=== PATIENT | male | born 1990 | race Caucasian/White ===

== ENCOUNTER 2017-02-22 13:09 | Emergency (ER) | payer SELFPAY ==
[2017-02-22 13:35] VITALS: BP 131/66
[2017-02-22] MEDS ORDERED: Sodium Chloride 0.9% 10 ML Syringe FLUSH PRN (14:05)
[2017-02-22] MEDS ORDERED: Sodium Chloride 0.9% 1,000 ML IV ONE ×2 (14:06→15:40)
[2017-02-22] MEDS ORDERED: Ondansetron 4 MG/2 ML SDV IV ONE ×2 (14:06→16:13)
[2017-02-22] MEDS ORDERED: HYDROmorphone 1 MG/ML Syringe IVPUSH ONE ×2 (14:06→16:13)
[2017-02-22 14:24] LABS: CHLORIDE,CL 104 mmol/L (101-111); SODIUM,NA 140 mmol/L (135-145)
[2017-02-22] MEDS ORDERED: Iopamidol 612 MG/ML 100 ML Bottle IVPUSH ONE (14:38)
[2017-02-22] MEDS ORDERED: methylPREDNISolone Sodium Succinate 125 MG/2 ML SDV IVPUSH ONE (15:51)
--- NOTE | 2017-02-22 16:52 | EDM.PDOC ---
Scribed by Sunitha Baer 02/22/17 [id number] for Eugenio Steward MD ED HPI GENERAL MEDICAL PROBLEM - General Chief Complaint: Abdominal Pain Stated Complaint: FLU [id number] Time Seen by Provider: 02/22/17 13:50 Source of Information: Reports: Patient, RN, RN Notes Reviewed History Limitations: Reports: No Limitations - History of Present Illness INITIAL COMMENTS - FREE TEXT/NARRATIVE: Complaint of onset of chills and upper-mid abdominal pain with nausea and vomiting 3 or 4 days ago. Denies fever, diarrhea or constipation. No known sick contacts. Denies urinary symptoms. Location: Reports: Abdomen Quality: Reports: Ache Severity: Severe Improves with: Reports: None Worsens with: Reports: None Associated Symptoms: Reports: No Other Symptoms Middle Abdominal Pain Score (Numeric/FACES): 9 - Related Data Allergies Allergy/AdvReac Type Severity Reaction Status Date / Time No Known Allergies Allergy Verified 12/10/14 21:11 Home Meds: Home Meds Omeprazole Magnesium [Prilosec Otc] 1 tab PO DAILY 02/22/17 [History] Social & Family History - Family History Family Medical History: Noncontributory - Tobacco Use Smoking Status *Q: Never Smoker - Recreational Drug Use Recreational Drug Use: No ED ROS GENERAL - Review of Systems Review Of Systems: ROS reveals no pertinent complaints other than HPI. ED EXAM, GENERAL - Physical Exam Exam: See Below Exam Limited By: No Limitations General Appearance: Other (pale and uncomfortable appearing.) Eye Exam: Bilateral Eye: Normal Inspection Ears: Normal External Exam, Normal Canal, Hearing Grossly Normal, Normal TMs Nose: Other (dry oral membranes) Throat/Mouth: Normal Inspection, Normal Lips, Normal Teeth, Normal Gums, Normal Oropharynx, Normal Voice, No Airway Compromise Head: Atraumatic, Normocephalic Neck: Normal Inspection, Supple, Non-Tender, Full Range of Motion Respiratory/Chest: No Respiratory Distress, Lungs Clear, Normal Breath Sounds, No Accessory Muscle Use, Chest Non-Tender Cardiovascular: Regular Rate, Rhythm, Tachycardia GI/Abdominal: Other (mild epigastric and periumbilical tenderness. ) (Male) Exam: Deferred Rectal (Males) Exam: Deferred Back Exam: Normal Inspection, Full Range of Motion, NT Extremities: Normal Inspection, Normal Range of Motion, Non-Tender, Normal Capillary Refill, No Pedal Edema Neurological: Alert, Oriented, CN II-XII Intact, Normal Cognition, Normal Gait, Normal Reflexes, No Motor/Sensory Deficits Psychiatric: Normal Affect, Normal Mood Skin Exam: Warm, Dry, Intact, Normal Color, No Rash Lymphatic: No Adenopathy Course - Vital Signs Last Recorded V/S: Last Vital Signs Temp 36.8 C 02/22/17 13:24 Pulse 52 L 02/22/17 13:24 Resp 18 02/22/17 13:24 BP 131/66 02/22/17 13:24 Pulse Ox 99 02/22/17 13:24 - Orders/Labs/Meds Orders: Active Orders 24 hr Category Date Time Status Peripheral IV Care [RC] . DIRECTED Care 02/22/17 14:06 Active Abdomen Pelvis w Cont [CT] Stat Exams 02/22/17 14:38 Taken C PEPTIDE [REF] Stat Lab 02/22/17 13:53 Received GLYCOSYLATED HEMOGLOBIN (HA1C) [REF] Stat Lab 02/22/17 13:53 Received Sodium Chloride 0.9% [Saline Flush] Med 02/22/17 14:05 Active 10 ml FLUSH ASDIRECTED PRN Peripheral IV Insertion Adult [OM.PC] Stat Oth 02/22/17 14:05 Ordered Medication Orders Sodium Chloride (Saline Flush) 10 ml FLUSH ASDIRECTED PRN PRN Reason: Keep Vein Open Last Admin: 02/22/17 14:00 Dose: 10 ml Labs: Laboratory Tests 02/22/17 02/22/17 02/22/17 Range/Units 13:53 13:53 13:53 WBC 18.8 H (5.0-10.0) 10^3/uL RBC 5.73 (4.6-6.2) 10^6/uL Hgb 16.4 (14.0-18.0) g/dL Hct 46.6 (40.0-54.0) % MCV 81.3 (80-100) fL MCH 28.6 (27.0-34.0) pg MCHC 35.2 H (33.0-35.0) g/dL Plt Count 210 (150-450) 10^3/uL Neut % (Auto) 91.7 H (42.2-75.2) % Lymph % (Auto) 4.4 L (20.5-50.1) % Terry % (Auto) 3.7 (2-8) % Eos % (Auto) 0.1 L (1.0-3.0) % Baso % (Auto) 0.1 (0.0-1.0) % Sodium 140 (135-145) mmol/L Potassium 4.0 (3.6-5.0) mmol/L Chloride 104 (101-111) mmol/L Carbon Dioxide 23.0 (21.0-31.0) mmol/L Anion Gap 17.0 BUN 15 (7-18) mg/dL Creatinine 1.2 (0.6-1.3) mg/dL Est Cr Clr Drug Dosing 94.63 mL/min Estimated GFR (MDRD) > 60 BUN/Creatinine Ratio 12.50 Glucose 157 H (74-105) mg/dL Calcium 9.9 (8.4-10.2) mg/dl Total Bilirubin 0.9 (0.2-1.0) mg/dL AST 26 (10-42) IU/L ALT 27 (10-60) IU/L Alkaline Phosphatase 72 (42-121) IU/L C-Reactive Protein < 0.5 (0.0-1.3) mg/dL Total Protein 7.9 (6.7-8.2) g/dl Albumin 4.9 (3.2-5.5) g/dl Globulin 3.0 Albumin/Globulin Ratio 1.63 Amylase 45 (28-100) U/L Lipase 15 L (22-51) U/L Urine Color (YELLOW) Urine Appearance (CLEAR) Urine pH (5.0-9.0) Ur Specific [place] (1.005-1.030) Urine Protein (NEGATIVE) Urine Glucose (UA) (NEGATIVE) Urine Ketones (NEGATIVE) Urine Occult Blood (NEGATIVE) Urine Nitrite (NEGATIVE) Urine Bilirubin (NEGATIVE) Urine Urobilinogen (0.2-1.0) mg/dL Ur Leukocyte Esterase (NEGATIVE) Urine RBC /HPF Urine WBC (0-5/HPF) /HPF Ur Epithelial Cells /HPF Urine Bacteria (0-FEW/HPF) /HPF Urine Mucus /LPF Urine Opiates Screen (NEGATIVE) Ur Oxycodone Screen (NEGATIVE) Urine Methadone Screen (NEGATIVE) Ur Barbiturates Screen (NEGATIVE) U Tricyclic Antidepress (NEGATIVE) Ur Phencyclidine Scrn (NEGATIVE) Ur Amphetamine Screen (NEGATIVE) U Methamphetamines Scrn (NEGATIVE) Urine MDMA Screen (NEGATIVE) U Benzodiazepines Scrn (NEGATIVE) Urine Cocaine Screen (NEGATIVE) U Marijuana (THC) Screen (NEGATIVE) 02/22/17 02/22/17 Range/Units 16:02 16:02 WBC (5.0-10.0) 10^3/uL RBC (4.6-6.2) 10^6/uL Hgb (14.0-18.0) g/dL Hct (40.0-54.0) % MCV (80-100) fL MCH (27.0-34.0) pg MCHC (33.0-35.0) g/dL Plt Count (150-450) 10^3/uL Neut % (Auto) (42.2-75.2) % Lymph % (Auto) (20.5-50.1) % Terry % (Auto) (2-8) % Eos % (Auto) (1.0-3.0) % Baso % (Auto) (0.0-1.0) % Sodium (135-145) mmol/L Potassium (3.6-5.0) mmol/L Chloride (101-111) mmol/L Carbon Dioxide (21.0-31.0) mmol/L Anion Gap BUN (7-18) mg/dL Creatinine (0.6-1.3) mg/dL Est Cr Clr Drug Dosing mL/min Estimated GFR (MDRD) BUN/Creatinine Ratio Glucose (74-105) mg/dL Calcium (8.4-10.2) mg/dl Total Bilirubin (0.2-1.0) mg/dL AST (10-42) IU/L ALT (10-60) IU/L Alkaline Phosphatase (42-121) IU/L C-Reactive Protein (0.0-1.3) mg/dL Total Protein (6.7-8.2) g/dl Albumin (3.2-5.5) g/dl Globulin Albumin/Globulin Ratio Amylase (28-100) U/L Lipase (22-51) U/L Urine Color Yellow (YELLOW) Urine Appearance Clear (CLEAR) Urine pH >= 9.0 (5.0-9.0) Ur Specific [place] 1.015 (1.005-1.030) Urine Protein Negative (NEGATIVE) Urine Glucose (UA) Negative (NEGATIVE) Urine Ketones Negative (NEGATIVE) Urine Occult Blood Negative (NEGATIVE) Urine Nitrite Negative (NEGATIVE) Urine Bilirubin Negative (NEGATIVE) Urine Urobilinogen 0.2 (0.2-1.0) mg/dL Ur Leukocyte Esterase Negative (NEGATIVE) Urine RBC 0-5 /HPF Urine WBC 0-5 (0-5/HPF) /HPF Ur Epithelial Cells Not seen /HPF Urine Bacteria Not seen (0-FEW/HPF) /HPF Urine Mucus Rare /LPF Urine Opiates Screen Positive H (NEGATIVE) Ur Oxycodone Screen Negative (NEGATIVE) Urine Methadone Screen Negative (NEGATIVE) Ur Barbiturates Screen Negative (NEGATIVE) U Tricyclic Antidepress Negative (NEGATIVE) Ur Phencyclidine Scrn Negative (NEGATIVE) Ur Amphetamine Screen Negative (NEGATIVE) U Methamphetamines Scrn Negative (NEGATIVE) Urine MDMA Screen Negative (NEGATIVE) U Benzodiazepines Scrn Negative (NEGATIVE) Urine Cocaine Screen Negative (NEGATIVE) U Marijuana (THC) Screen Positive H (NEGATIVE) Meds: Medications Generic Name Dose Route Start Last Admin Trade Name Freq PRN Reason Stop Dose Admin Sodium Chloride 10 ml 02/22/17 14:05 02/22/17 14:00 Saline Flush FLUSH 10 ml ASDIRECTED PRN Administration Keep Vein Open Discontinued Medications Generic Name Dose Route Start Last Admin Trade Name Freq PRN Reason Stop Dose Admin Hydromorphone HCl 0.5 mg 02/22/17 14:06 02/22/17 14:17 Dilaudid IVPUSH 02/22/17 14:07 0.5 mg ONETIME ONE Administration Hydromorphone HCl 1 mg 02/22/17 16:13 02/22/17 16:20 Dilaudid IVPUSH 02/22/17 16:14 1 mg ONETIME ONE Administration Sodium Chloride 1,000 mls @ 999 mls/hr 02/22/17 14:06 02/22/17 14:12 Normal Saline IV 02/22/17 15:06 999 mls/hr .BOLUS ONE Administration Sodium Chloride 1,000 mls @ 999 mls/hr 02/22/17 15:40 02/22/17 16:04 Normal Saline IV 02/22/17 16:40 999 mls/hr .BOLUS ONE Administration Iopamidol 100 ml 02/22/17 14:38 02/22/17 15:08 Isovue-300 (61%) IVPUSH 02/22/17 14:39 100 ml ONETIME ONE Administration Methylprednisolone Sodium Succinate 125 mg 02/22/17 15:51 02/22/17 16:04 Solu-Medrol IVPUSH 02/22/17 15:52 125 mg ONETIME ONE Administration Ondansetron HCl 4 mg 02/22/17 14:06 02/22/17 14:13 Zofran IV 02/22/17 14:07 4 mg ONETIME ONE Administration Ondansetron HCl 4 mg 02/22/17 16:13 02/22/17 16:18 Zofran IV 02/22/17 16:14 4 mg ONETIME ONE Administration - Radiology Interpretation Free Text/Narrative:: CT abdomen/pelvis: Features suggestive of acute colitis. There is abnormal hypodense mucosal thickening present in the ascending, transverse, descending and proximal sigmoid colonic segments of large bowel, suggestive of acute colitis. No evidence of megacolon or colonic perforation. No evidence of significant ileus or bowel obstruction. Appendix appaers normal. A tiny periumbilical midline ventral hernia is present. See rad report. Departure - Departure Time of Disposition: 16:16 Disposition: Home, Self-Care 01 Condition: Fair Clinical Impression: Colitis, Hyperglycemia Abdominal pain Qualifiers: Abdominal location: generalized Qualified Code(s): R10.84 - Generalized abdominal pain - Discharge Information Instructions: Hyperglycemia, [id number], Colitis Forms: ED Department Discharge Additional Instructions: RX: Bentyl 20mg. *Do not drive while under the influence of this medication. RX: Zofran 4mg. Clear liquid diet until vomiting and abdominal pain resolve. Follow up in clinic February 24, for recheck of colitis and blood sugar. Return to the emergency department if you develop fever, bloody diarrhea, or uncontrolled abdominal pain. - My Orders Last 24 Hours: My Active Orders 02/22/17 13:53 C PEPTIDE [REF] Stat GLYCOSYLATED HEMOGLOBIN (HA1C) [REF] Stat 02/22/17 14:05 Sodium Chloride 0.9% [Saline Flush] 10 ml FLUSH ASDIRECTED PRN Peripheral IV Insertion Adult [OM.PC] Stat 02/22/17 14:06 Peripheral IV Care [RC] . DIRECTED 02/22/17 14:38 Abdomen Pelvis w Cont [CT] Stat - Assessment/Plan Last 24 Hours: My Active Orders 02/22/17 13:53 C PEPTIDE [REF] Stat GLYCOSYLATED HEMOGLOBIN (HA1C) [REF] Stat 02/22/17 14:05 Sodium Chloride 0.9% [Saline Flush] 10 ml FLUSH ASDIRECTED PRN Peripheral IV Insertion Adult [OM.PC] Stat 02/22/17 14:06 Peripheral IV Care [RC] . DIRECTED 02/22/17 14:38 Abdomen Pelvis w Cont [CT] Stat I have read and agree with the documentation that has been completed regarding this visit. By signing this record, I attest that the documentation was completed in my physical presence and is an accurate record of the encounter.
== END 2017-02-22 17:05 | disposition home or self-care (01) ==
LOC: DL.ED 13:09
DX: K52.9 Noninfective gastroenteritis and colitis, unspecified (principal); R73.9 Hyperglycemia, unspecified; Z79.899 Other long term (current) drug therapy
CPT/HCPCS: 36415; 74177; 80053; 80305; 81001; 82150; 83036; 83690; 84681; 85025; 86140; 96365; 96366; 96375; 96376; 99284; J1170; J2405; J2930; J7030; J7050; Q9967

== ENCOUNTER 2017-02-23 10:15 | Emergency (ER) | payer SELFPAY ==
[2017-02-23] MEDS ORDERED: Sodium Chloride 0.9% 10 ML Syringe FLUSH PRN (10:19)
[2017-02-23] MEDS ORDERED: Ondansetron 4 MG/2 ML SDV IV ONE ×2 (10:22→11:35)
[2017-02-23] MEDS ORDERED: Sodium Chloride 0.9% 1,000 ML IV ONE (10:22)
[2017-02-23] MEDS ORDERED: HYDROmorphone 1 MG/ML Syringe IVPUSH ONE ×2 (10:22→11:35)
[2017-02-23 10:28] VITALS: BP 143/70
[2017-02-23 10:59] LABS: CHLORIDE,CL 106 mmol/L (101-111); SODIUM,NA 139 mmol/L (135-145)
--- NOTE | 2017-02-23 11:35 | EDM.PDOC ---
Scribed by Sunitha Baer 02/23/17 1116 for Eugenio Steward MD ED HPI GENERAL MEDICAL PROBLEM - General Chief Complaint: Abdominal Pain Stated Complaint: SICK Time Seen by Provider: 02/23/17 10:19 Source of Information: Reports: Patient, RN, RN Notes Reviewed History Limitations: Reports: No Limitations - History of Present Illness INITIAL COMMENTS - FREE TEXT/NARRATIVE: Arrives from home by POV with complaint of increased abdominal pain with continued nausea, vomiting, chills and now has developed watery diarrhea. Patient seen here yesterday and found to have colitis by CT scan with WBC [id number] and nonelevated CRP. Denies blood in emesis or stool. Location: Reports: Abdomen Quality: Reports: Ache Severity: Severe Improves with: Reports: None Worsens with: Reports: None Associated Symptoms: Reports: No Other Symptoms Middle Abdominal Pain Score (Numeric/FACES): 9 - Related Data Allergies Allergy/AdvReac Type Severity Reaction Status Date / Time No Known Allergies Allergy Verified 12/10/14 21:11 Home Meds: Home Meds Omeprazole Magnesium [Prilosec Otc] 1 tab PO DAILY 02/22/17 [History] Dicyclomine [Bentyl] 1 tab PO ASDIRECTED PRN 02/23/17 [History] Ondansetron [Zofran ODT] 1 tab PO ASDIRECTED PRN 02/23/17 [History] Past Medical History Gastrointestinal History: Reports: GERD - Past Surgical History GI Surgical History: Reports: EGD Social & Family History - Family History Family Medical History: Noncontributory - Tobacco Use Smoking Status *Q: Never Smoker Used Tobacco, but Quit: Yes Month Tobacco Last Used: 6 - Caffeine Use Caffeine Use: Reports: Soda - Recreational Drug Use Recreational Drug Use: No ED ROS GENERAL - Review of Systems Review Of Systems: ROS reveals no pertinent complaints other than HPI. ED EXAM, GI/ABD - Physical Exam Exam: See Below Exam Limited By: No Limitations General Appearance: Other (acutely ill, but nontoxic appearing. ) Eyes: Bilateral: Normal Appearance Ears: Normal External Exam, Normal Canal, Hearing Grossly Normal, Normal TMs Nose: Normal Inspection, Normal Mucosa, No Blood Throat/Mouth: Other (dry oral membranes) Head: Atraumatic, Normocephalic Neck: Normal Inspection, Supple, Non-Tender, Full Range of Motion Respiratory/Chest: No Respiratory Distress, Lungs Clear, Normal Breath Sounds, No Accessory Muscle Use, Chest Non-Tender Cardiovascular: Regular Rate, Rhythm, Tachycardia GI/Abdominal Exam: Normal Bowel Sounds, Other (nondistended abdomen with generalized tenderness, no rebound tenderness, guarding, or rigidity. No peritoneal signs. ) (Male) Exam: Deferred Rectal (Males) Exam: Deferred Back Exam: Normal Inspection, Full Range of Motion, NT Extremities: Normal Inspection, Normal Range of Motion, Non-Tender, Normal Capillary Refill, No Pedal Edema Neurological: Alert, Oriented, CN II-XII Intact, Normal Cognition, Normal Gait, Normal Reflexes, No Motor/Sensory Deficits Skin Exam: Warm, Dry, Intact, Normal Color, No Rash Lymphatic: No Adenopathy Course - Vital Signs Last Recorded V/S: Last Vital Signs Temp 36.7 C 02/23/17 10:46 Pulse 54 L 02/23/17 10:27 Resp 20 02/23/17 10:27 BP 143/70 H 02/23/17 10:27 Pulse Ox 99 02/23/17 10:27 - Orders/Labs/Meds Orders: Active Orders 24 hr Category Date Time Status Peripheral IV Care [RC] . DIRECTED Care 02/23/17 10:20 Active CULTURE BLOOD [BC] Stat Lab 02/23/17 10:28 Received CULTURE BLOOD [BC] Stat Lab 02/23/17 10:31 Received ESR [SEDIMENTATION RATE MANUAL] [HEME] Stat Lab 02/23/17 10:31 Received Sodium Chloride 0.9% [Normal Saline] 1,000 ml Med 02/23/17 11:45 Ordered IV ASDIRECTED Sodium Chloride 0.9% [Saline Flush] Med 02/23/17 10:19 Active 10 ml FLUSH ASDIRECTED PRN Blood Culture x2 Reflex Set [OM.PC] Stat Oth 02/23/17 10:21 Ordered Peripheral IV Insertion Adult [OM.PC] Stat Oth 02/23/17 10:19 Ordered Medication Orders Sodium Chloride (Normal Saline) 1,000 mls @ 200 mls/hr IV ASDIRECTED SONIA Sodium Chloride (Saline Flush) 10 ml FLUSH ASDIRECTED PRN PRN Reason: Keep Vein Open Last Admin: 02/23/17 10:30 Dose: 10 ml Labs: Laboratory Tests 0902/23/17 02/23/17 Range/Units 10:31 10:31 10:31 WBC 37.4 H* (5.0-10.0) 10^3/uL RBC 5.28 (4.6-6.2) 10^6/uL Hgb 15.1 (14.0-18.0) g/dL Hct 43.6 (40.0-54.0) % MCV 82.6 (80-100) fL MCH 28.6 (27.0-34.0) pg MCHC 34.6 (33.0-35.0) g/dL Plt Count 201 (150-450) 10^3/uL Neut % (Auto) 87.2 H (42.2-75.2) % Lymph % (Auto) 5.5 L (20.5-50.1) % [place] % (Auto) 7.2 (2-8) % Eos % (Auto) 0.0 L (1.0-3.0) % Baso % (Auto) 0.1 (0.0-1.0) % Sodium 139 (135-145) mmol/L Potassium 3.5 L (3.6-5.0) mmol/L Chloride 106 (101-111) mmol/L Carbon Dioxide 20.0 L (21.0-31.0) mmol/L Anion Gap 16.5 BUN 14 (7-18) mg/dL Creatinine 1.2 (0.6-1.3) mg/dL Est Cr Clr Drug Dosing TNP Estimated GFR (MDRD) > 60 BUN/Creatinine Ratio 11.66 Glucose 129 H (74-105) mg/dL Lactic Acid 1.7 (0.5-2.2) mmol/L Calcium 9.2 (8.4-10.2) mg/dl Total Bilirubin 1.0 (0.2-1.0) mg/dL AST 23 (10-42) IU/L ALT 22 (10-60) IU/L Alkaline Phosphatase 61 (42-121) IU/L C-Reactive Protein (0.0-1.3) mg/dL Total Protein 6.9 (6.7-8.2) g/dl Albumin 4.4 (3.2-5.5) g/dl Globulin 2.5 Albumin/Globulin Ratio 1.76 Amylase 109 H (28-100) U/L Lipase 82 H (22-51) U/L Urine Color (YELLOW) Urine Appearance (CLEAR) Urine pH (5.0-9.0) Ur Specific [place] (1.005-1.030) Urine Protein (NEGATIVE) Urine Glucose (UA) (NEGATIVE) Urine Ketones (NEGATIVE) Urine Occult Blood (NEGATIVE) Urine Nitrite (NEGATIVE) Urine Bilirubin (NEGATIVE) Urine Urobilinogen (0.2-1.0) mg/dL Ur Leukocyte Esterase (NEGATIVE) Urine RBC /HPF Urine WBC (0-5/HPF) /HPF Ur Epithelial Cells /HPF Amorphous Sediment (0/HPF) /HPF Urine Bacteria (0-FEW/HPF) /HPF Urine Mucus /LPF Urine Opiates Screen (NEGATIVE) Ur Oxycodone Screen (NEGATIVE) Urine Methadone Screen (NEGATIVE) Ur Barbiturates Screen (NEGATIVE) U Tricyclic Antidepress (NEGATIVE) Ur Phencyclidine Scrn (NEGATIVE) Ur Amphetamine Screen (NEGATIVE) U Methamphetamines Scrn (NEGATIVE) Urine MDMA Screen (NEGATIVE) U Benzodiazepines Scrn (NEGATIVE) Urine Cocaine Screen (NEGATIVE) U Marijuana (THC) Screen (NEGATIVE) 02/23/17 02/23/17 02/23/17 Range/Units 10:31 10:39 10:39 WBC (5.0-10.0) 10^3/uL RBC (4.6-6.2) 10^6/uL Hgb (14.0-18.0) g/dL Hct (40.0-54.0) % MCV (80-100) fL MCH (27.0-34.0) pg MCHC (33.0-35.0) g/dL Plt Count (150-450) 10^3/uL Neut % (Auto) (42.2-75.2) % Lymph % (Auto) (20.5-50.1) % [place] % (Auto) (2-8) % Eos % (Auto) (1.0-3.0) % Baso % (Auto) (0.0-1.0) % Sodium (135-145) mmol/L Potassium (3.6-5.0) mmol/L Chloride (101-111) mmol/L Carbon Dioxide (21.0-31.0) mmol/L Anion Gap BUN (7-18) mg/dL Creatinine (0.6-1.3) mg/dL Est Cr Clr Drug Dosing Estimated GFR (MDRD) BUN/Creatinine Ratio Glucose (74-105) mg/dL Lactic Acid (0.5-2.2) mmol/L Calcium (8.4-10.2) mg/dl Total Bilirubin (0.2-1.0) mg/dL AST (10-42) IU/L ALT (10-60) IU/L Alkaline Phosphatase (42-121) IU/L C-Reactive Protein < 0.5 (0.0-1.3) mg/dL Total Protein (6.7-8.2) g/dl Albumin (3.2-5.5) g/dl Globulin Albumin/Globulin Ratio Amylase (28-100) U/L Lipase (22-51) U/L Urine Color Yellow (YELLOW) Urine Appearance Slightly cloudy (CLEAR) Urine pH 6.0 (5.0-9.0) Ur Specific [place] >= 1.030 (1.005-1.030) Urine Protein 30 H (NEGATIVE) Urine Glucose (UA) Negative (NEGATIVE) Urine Ketones Negative (NEGATIVE) Urine Occult Blood Negative (NEGATIVE) Urine Nitrite Negative (NEGATIVE) Urine Bilirubin Negative (NEGATIVE) Urine Urobilinogen 0.2 (0.2-1.0) mg/dL Ur Leukocyte Esterase Negative (NEGATIVE) Urine RBC 0-5 /HPF Urine WBC 0-5 (0-5/HPF) /HPF Ur Epithelial Cells Rare /HPF Amorphous Sediment Rare (0/HPF) /HPF Urine Bacteria Occasional (0-FEW/HPF) /HPF Urine Mucus Many H /LPF Urine Opiates Screen Positive H (NEGATIVE) Ur Oxycodone Screen Negative (NEGATIVE) Urine Methadone Screen Negative (NEGATIVE) Ur Barbiturates Screen Negative (NEGATIVE) U Tricyclic Antidepress Negative (NEGATIVE) Ur Phencyclidine Scrn Negative (NEGATIVE) Ur Amphetamine Screen Negative (NEGATIVE) U Methamphetamines Scrn Negative (NEGATIVE) Urine MDMA Screen Negative (NEGATIVE) U Benzodiazepines Scrn Negative (NEGATIVE) Urine Cocaine Screen Negative (NEGATIVE) U Marijuana (THC) Screen Positive H (NEGATIVE) Meds: Medications Generic Name Dose Route Start Last Admin Trade Name Freq PRN Reason Stop Dose Admin Sodium Chloride 1,000 mls @ 200 mls/hr 02/23/17 11:45 Normal Saline IV ASDIRECTED SONIA Sodium Chloride 10 ml 02/23/17 10:19 02/23/17 10:30 Saline Flush FLUSH 10 ml ASDIRECTED PRN Administration Keep Vein Open Discontinued Medications Generic Name Dose Route Start Last Admin Trade Name Lucaq PRN Reason Stop Dose Admin Hydromorphone HCl 1 mg 02/23/17 10:22 02/23/17 10:40 Dilaudid IVPUSH 02/23/17 10:23 1 mg ONETIME ONE Administration Sodium Chloride 1,000 mls @ 999 mls/hr 02/23/17 10:22 02/23/17 10:38 Normal Saline IV 02/23/17 11:22 999 mls/hr .BOLUS ONE Administration Ondansetron HCl 4 mg 02/23/17 10:22 02/23/17 10:39 Zofran IV 02/23/17 10:23 4 mg ONETIME ONE Administration - Radiology Interpretation Free Text/Narrative:: Reviewed CT abdomen/pelvis from 02/22/17. Departure - Departure Time of Disposition: 11:15 Disposition: DC/Tfer to Acute Hospital 02 Condition: Serious Clinical Impression: Colitis, Abdominal pain - Discharge Information Forms: ED Department Discharge, Interfacility Transfer EMTALA - My Orders Last 24 Hours: My Active Orders 02/23/17 10:19 Sodium Chloride 0.9% [Saline Flush] 10 ml FLUSH ASDIRECTED PRN Peripheral IV Insertion Adult [OM.PC] Stat 02/23/17 10:20 Peripheral IV Care [RC] . DIRECTED 02/23/17 10:21 Blood Culture x2 Reflex Set [OM.PC] Stat 02/23/17 10:28 CULTURE BLOOD [BC] Stat 02/23/17 10:31 CULTURE BLOOD [BC] Stat ESR [SEDIMENTATION RATE MANUAL] [HEME] Stat 02/23/17 11:45 Sodium Chloride 0.9% [Normal Saline] 1,000 ml IV ASDIRECTED - Assessment/Plan Last 24 Hours: My Active Orders 02/23/17 10:19 Sodium Chloride 0.9% [Saline Flush] 10 ml FLUSH ASDIRECTED PRN Peripheral IV Insertion Adult [OM.PC] Stat 02/23/17 10:20 Peripheral IV Care [RC] . DIRECTED 02/23/17 10:21 Blood Culture x2 Reflex Set [OM.PC] Stat 02/23/17 10:28 CULTURE BLOOD [BC] Stat 02/23/17 10:31 CULTURE BLOOD [BC] Stat ESR [SEDIMENTATION RATE MANUAL] [HEME] Stat 02/23/17 11:45 Sodium Chloride 0.9% [Normal Saline] 1,000 ml IV ASDIRECTED I have read and agree with the documentation that has been completed regarding this visit. By signing this record, I attest that the documentation was completed in my physical presence and is an accurate record of the encounter.
[2017-02-23] MEDS ORDERED: Sodium Chloride 0.9% 1,000 ML IV SCH (11:45)
== END 2017-02-23 12:12 ==
LOC: DL.ED 10:15
DX: K52.9 Noninfective gastroenteritis and colitis, unspecified (principal); K21.9 Gastro-esophageal reflux disease without esophagitis; Z87.891 Personal history of nicotine dependence; Z79.899 Other long term (current) drug therapy
CPT/HCPCS: 36415; 80053; 80305; 81001; 82150; 83605; 83690; 85025; 85651; 86140; 87040; 96361; 96374; 96375; 96376; 99285; J1170; J2405; J7030; J7050; 87077; 87186; 99284

== ENCOUNTER 2017-05-30 09:48 | Emergency (ER) | payer SELFPAY ==
[2017-05-30] MEDS ORDERED: Sodium Chloride 0.9% 10 ML Syringe FLUSH PRN (10:07)
[2017-05-30] MEDS ORDERED: Sodium Chloride 0.9% 1,000 ML IV ONE ×2 (10:08→11:18)
[2017-05-30] MEDS ORDERED: Ondansetron 4 MG/2 ML SDV IV ONE ×2 (10:08→10:51)
--- NOTE | 2017-05-30 10:19 | EDM.PDOC ---
ED HPI GENERAL MEDICAL PROBLEM - General Chief Complaint: Gastrointestinal Problem Stated Complaint: VOMITING [id number] Time Seen by Provider: 05/30/17 10:09 Source of Information: Reports: Patient, RN, RN Notes Reviewed History Limitations: Reports: No Limitations - History of Present Illness INITIAL COMMENTS - FREE TEXT/NARRATIVE: Pt presents to the ER with c/o N/V for 1 week. He states he was seen in the clinic on Thursday or Thursday and was prescribed Protonix and Effexor. He states he has been nauseated all week and began vomiting again today. He states he has vomited bile emesis 3-4 times today. He states he has not been able to eat much and tried to eat a banana today. He states the abdominal pain has progressed through the week. Onset: Gradual Onset Date: 05/23/17 Duration: Getting Worse Location: Reports: Abdomen Severity: Moderate Improves with: Reports: None Worsens with: Reports: None Abdominal Pain Score (Numeric/FACES): 8 - Related Data Allergies Allergy/AdvReac Type Severity Reaction Status Date / Time No Known Allergies Allergy Verified 05/30/17 09:59 Home Meds: Home Meds Pantoprazole [ProTONIX] 40 mg PO DAILY 05/30/17 [History] Venlafaxine [Effexor XR] 37.5 mg PO DAILY 05/30/17 [History] Past Medical History HEENT History: Reports: None Cardiovascular History: Reports: None Respiratory History: Reports: None Gastrointestinal History: Reports: GERD Other Gastrointestinal History: colitis Genitourinary History: Reports: None Musculoskeletal History: Reports: None Neurological History: Reports: None Psychiatric History: Reports: Anxiety Endocrine/Metabolic History: Reports: None Hematologic History: Reports: None Immunologic History: Reports: None Oncologic (Cancer) History: Reports: None Dermatologic History: Reports: None - Infectious Disease History Infectious Disease History: Reports: Chicken Pox - Past Surgical History Head Surgeries/Procedures: Reports: None GI Surgical History: Reports: EGD Social & Family History - Family History Family Medical History: Noncontributory - Tobacco Use Smoking Status *Q: Never Smoker Used Tobacco, but Quit: Yes Month Tobacco Last Used: 6 Second Hand Smoke Exposure: Yes - Caffeine Use Caffeine Use: Reports: Coffee, Soda - Recreational Drug Use Recreational Drug Use: No ED ROS GENERAL - Review of Systems Review Of Systems: ROS reveals no pertinent complaints other than HPI. ED EXAM, GI/ABD - Physical Exam Exam: See Below Exam Limited By: No Limitations General Appearance: Alert, WD/WN, Moderate Distress, Other (pale, dark circles under the eyes, ill appearing) Ears: Normal External Exam, Hearing Grossly Normal Nose: Normal Inspection Throat/Mouth: Normal Inspection, Normal Voice, No Airway Compromise Head: Atraumatic, Normocephalic Neck: Normal Inspection Respiratory/Chest: No Respiratory Distress, Lungs Clear, Normal Breath Sounds, No Accessory Muscle Use, Chest Non-Tender Cardiovascular: Normal Peripheral Pulses, Regular Rate, Rhythm, No Edema, No Gallop, No JVD, No Murmur, No Rub GI/Abdominal Exam: Soft, No Organomegaly, No Distention, No Mass, Tender, Abnormal Bowel Sounds (decreased) (Male) Exam: Deferred Rectal (Males) Exam: Deferred Back Exam: Normal Inspection, Full Range of Motion Extremities: Normal Inspection, Normal Range of Motion, Non-Tender, No Pedal Edema, Normal Capillary Refill Neurological: Alert, Oriented, Normal Cognition, Normal Gait, No Motor/Sensory Deficits Psychiatric: Normal Affect, Normal Mood Skin Exam: Warm, Dry, Intact, No Rash, Pallor Lymphatic: No Adenopathy Course - Vital Signs Last Recorded V/S: Last Vital Signs Temp 97.8 F 05/30/17 12:24 Pulse 71 05/30/17 12:24 Resp 16 05/30/17 12:24 BP 138/73 05/30/17 12:24 Pulse Ox 100 05/30/17 12:24 - Orders/Labs/Meds Orders: Active Orders 24 hr Category Date Time Status Peripheral IV Care [RC] . DIRECTED Care 05/30/17 10:07 Active Sodium Chloride 0.9% [Saline Flush] Med 05/30/17 10:07 Active 10 ml FLUSH ASDIRECTED PRN Peripheral IV Insertion Adult [OM.PC] Stat Oth 05/30/17 10:07 Ordered Medication Orders Sodium Chloride (Saline Flush) 10 ml FLUSH ASDIRECTED PRN PRN Reason: Keep Vein Open Last Admin: 05/30/17 10:14 Dose: 10 ml Labs: Laboratory Tests 05/30/17 05/30/17 05/30/17 Range/Units 10:23 10:23 10:23 WBC 13.2 H (5.0-10.0) 10^3/uL RBC 5.55 (4.6-6.2) 10^6/uL Hgb 15.6 (14.0-18.0) g/dL Hct 44.9 (40.0-54.0) % MCV 80.9 (80-100) fL MCH 28.1 (27.0-34.0) pg MCHC 34.7 (33.0-35.0) g/dL Plt Count 222 (150-450) 10^3/uL Neut % (Auto) 86.2 H (42.2-75.2) % Lymph % (Auto) 8.7 L (20.5-50.1) % [place] % (Auto) 4.4 (2-8) % Eos % (Auto) 0.5 L (1.0-3.0) % Baso % (Auto) 0.2 (0.0-1.0) % Sodium 139 (135-145) mmol/L Potassium 3.7 (3.6-5.0) mmol/L Chloride 106 (101-111) mmol/L Carbon Dioxide 23.0 (21.0-31.0) mmol/L Anion Gap 13.7 BUN 16 (7-18) mg/dL Creatinine 1.3 (0.6-1.3) mg/dL Est Cr Clr Drug Dosing 87.35 mL/min Estimated GFR (MDRD) > 60 BUN/Creatinine Ratio 12.30 Glucose 146 H (74-105) mg/dL Lactic Acid 1.2 (0.5-2.2) mmol/L Calcium 9.5 (8.4-10.2) mg/dl Magnesium 2.0 (1.8-2.5) mg/dL Total Bilirubin 1.1 H (0.2-1.0) mg/dL AST 22 (10-42) IU/L ALT 26 (10-60) IU/L Alkaline Phosphatase 65 (42-121) IU/L Total Protein 7.5 (6.7-8.2) g/dl Albumin 4.6 (3.2-5.5) g/dl Globulin 2.9 Albumin/Globulin Ratio 1.59 Amylase 39 (28-100) U/L Lipase 19 L (22-51) U/L Urine Color (YELLOW) Urine Appearance (CLEAR) Urine pH (5.0-9.0) Ur Specific Silva (1.005-1.030) Urine Protein (NEGATIVE) Urine Glucose (UA) (NEGATIVE) Urine Ketones (NEGATIVE) Urine Occult Blood (NEGATIVE) Urine Nitrite (NEGATIVE) Urine Bilirubin (NEGATIVE) Urine Urobilinogen (0.2-1.0) mg/dL Ur Leukocyte Esterase (NEGATIVE) Urine RBC /HPF Urine WBC (0-5/HPF) /HPF Ur Epithelial Cells /HPF Urine Bacteria (0-FEW/HPF) /HPF Urine Mucus /LPF Urine Opiates Screen (NEGATIVE) Ur Oxycodone Screen (NEGATIVE) Urine Methadone Screen (NEGATIVE) Ur Barbiturates Screen (NEGATIVE) U Tricyclic Antidepress (NEGATIVE) Ur Phencyclidine Scrn (NEGATIVE) Ur Amphetamine Screen (NEGATIVE) U Methamphetamines Scrn (NEGATIVE) Urine MDMA Screen (NEGATIVE) U Benzodiazepines Scrn (NEGATIVE) Urine Cocaine Screen (NEGATIVE) U Marijuana (THC) Screen (NEGATIVE) Ethyl Alcohol < 5 mg/dL 05/30/17 05/30/17 Range/Units 10:49 10:49 WBC (5.0-10.0) 10^3/uL RBC (4.6-6.2) 10^6/uL Hgb (14.0-18.0) g/dL Hct (40.0-54.0) % MCV (80-100) fL MCH (27.0-34.0) pg MCHC (33.0-35.0) g/dL Plt Count (150-450) 10^3/uL Neut % (Auto) (42.2-75.2) % Lymph % (Auto) (20.5-50.1) % [place] % (Auto) (2-8) % Eos % (Auto) (1.0-3.0) % Baso % (Auto) (0.0-1.0) % Sodium (135-145) mmol/L Potassium (3.6-5.0) mmol/L Chloride (101-111) mmol/L Carbon Dioxide (21.0-31.0) mmol/L Anion Gap BUN (7-18) mg/dL Creatinine (0.6-1.3) mg/dL Est Cr Clr Drug Dosing mL/min Estimated GFR (MDRD) BUN/Creatinine Ratio Glucose (74-105) mg/dL Lactic Acid (0.5-2.2) mmol/L Calcium (8.4-10.2) mg/dl Magnesium (1.8-2.5) mg/dL Total Bilirubin (0.2-1.0) mg/dL AST (10-42) IU/L ALT (10-60) IU/L Alkaline Phosphatase (42-121) IU/L Total Protein (6.7-8.2) g/dl Albumin (3.2-5.5) g/dl Globulin Albumin/Globulin Ratio Amylase (28-100) U/L Lipase (22-51) U/L Urine Color Yellow (YELLOW) Urine Appearance Clear (CLEAR) Urine pH 7.0 (5.0-9.0) Ur Specific Silva 1.025 (1.005-1.030) Urine Protein 30 H (NEGATIVE) Urine Glucose (UA) Negative (NEGATIVE) Urine Ketones >=160 H (NEGATIVE) Urine Occult Blood Negative (NEGATIVE) Urine Nitrite Negative (NEGATIVE) Urine Bilirubin Small H (NEGATIVE) Urine Urobilinogen 1.0 (0.2-1.0) mg/dL Ur Leukocyte Esterase Negative (NEGATIVE) Urine RBC 0-5 /HPF Urine WBC 0-5 (0-5/HPF) /HPF Ur Epithelial Cells Rare /HPF Urine Bacteria Few (0-FEW/HPF) /HPF Urine Mucus Many H /LPF Urine Opiates Screen Negative (NEGATIVE) Ur Oxycodone Screen Negative (NEGATIVE) Urine Methadone Screen Negative (NEGATIVE) Ur Barbiturates Screen Negative (NEGATIVE) U Tricyclic Antidepress Negative (NEGATIVE) Ur Phencyclidine Scrn Negative (NEGATIVE) Ur Amphetamine Screen Negative (NEGATIVE) U Methamphetamines Scrn Negative (NEGATIVE) Urine MDMA Screen Negative (NEGATIVE) U Benzodiazepines Scrn Negative (NEGATIVE) Urine Cocaine Screen Negative (NEGATIVE) U Marijuana (THC) Screen Positive H (NEGATIVE) Ethyl Alcohol mg/dL Meds: Medications Generic Name Dose Route Start Last Admin Trade Name Freq PRN Reason Stop Dose Admin Sodium Chloride 10 ml 05/30/17 10:07 05/30/17 10:14 Saline Flush FLUSH 10 ml ASDIRECTED PRN Administration Keep Vein Open Discontinued Medications Generic Name Dose Route Start Last Admin Trade Name Freq PRN Reason Stop Dose Admin Al Hydroxide/Mg Hydroxide 30 ml 05/30/17 12:20 Gi Cocktail PO 05/30/17 12:21 ONETIME ONE Hydromorphone HCl 0.5 mg 05/30/17 10:53 05/30/17 11:00 Dilaudid IVPUSH 05/30/17 10:54 0.5 mg ONETIME ONE Administration Sodium Chloride 1,000 mls @ 999 mls/hr 05/30/17 10:08 05/30/17 10:14 Normal Saline IV 05/30/17 11:08 999 mls/hr .BOLUS ONE Administration Sodium Chloride 1,000 mls @ 999 mls/min 05/30/17 11:18 05/30/17 11:21 Normal Saline IV 05/30/17 11:19 999 mls/min .BOLUS ONE Administration Ondansetron HCl 4 mg 05/30/17 10:08 05/30/17 10:17 Zofran IV 05/30/17 10:09 4 mg ONETIME ONE Administration Ondansetron HCl 4 mg 05/30/17 10:51 05/30/17 10:59 Zofran IV 05/30/17 10:52 4 mg ONETIME ONE Administration - Re-Assessments/Exams Free Text/Narrative Re-Assessment/Exam: 05/30/17 11:49 Pt refuses Abdominal/Pelvic CT at this time. Departure - Departure Time of Disposition: 12:29 Disposition: Home, Self-Care 01 Condition: Fair Clinical Impression: Gastroenteritis, Abdominal pain, Vomiting Leukocytosis, unspecified Qualifiers: Leukocytosis type: unspecified Qualified Code(s): D72.829 - Elevated white blood cell count, unspecified - Discharge Information Instructions: Nausea and Vomiting, Adult, [id number], Abdominal Pain, Adult, [id number] Forms: ED Department Discharge Additional Instructions: Rest, drink fluids Follow up with your primary care facility next week. Continue taking your medications for acid reflux. Keep the diet bland. - My Orders Last 24 Hours: My Active Orders 05/30/17 10:07 Peripheral IV Care [RC] . DIRECTED Sodium Chloride 0.9% [Saline Flush] 10 ml FLUSH ASDIRECTED PRN Peripheral IV Insertion Adult [OM.PC] Stat - Assessment/Plan Last 24 Hours: My Active Orders 05/30/17 10:07 Peripheral IV Care [RC] . DIRECTED Sodium Chloride 0.9% [Saline Flush] 10 ml FLUSH ASDIRECTED PRN Peripheral IV Insertion Adult [OM.PC] Stat
[2017-05-30 10:53] LABS: CHLORIDE,CL 106 mmol/L (101-111); SODIUM,NA 139 mmol/L (135-145)
[2017-05-30] MEDS ORDERED: HYDROmorphone 1 MG/ML Syringe IVPUSH ONE (10:53)
[2017-05-30] MEDS ORDERED: GI Cocktail Oral Solution 30 ML PO ONE (12:20)
[2017-05-30 12:27] VITALS: BP 138/73
== END 2017-05-30 12:46 | disposition home or self-care (01) ==
LOC: DL.ED 09:48
DX: K52.9 Noninfective gastroenteritis and colitis, unspecified (principal); D72.829 Elevated white blood cell count, unspecified; Z79.899 Other long term (current) drug therapy
CPT/HCPCS: 36415; 80053; 80305; 81001; 82150; 83605; 83690; 83735; 85025; 96361; 96374; 96375; 96376; 99284; A9270; G0480; J1170; J2405; J7030; J7050

== ENCOUNTER 2020-06-22 15:03 | Emergency (ER) | payer SELFPAY ==
[2020-06-22] MEDS ORDERED: Promethazine 25 MG Tab PO ONE (15:04)
[2020-06-22] MEDS ORDERED: Ondansetron 4 MG Tab.DIS PO ONE (15:04)
[2020-06-22] MEDS ORDERED: Ondansetron 4 MG/2 ML SDV IVPUSH ONE (15:43)
[2020-06-22] MEDS ORDERED: Sodium Chloride 0.9% 10 ML Syringe FLUSH PRN (15:43)
[2020-06-22] MEDS ORDERED: Sodium Chloride 0.9% 1,000 ML IV ONE (15:43)
[2020-06-22] MEDS ORDERED: Pantoprazole 40 MG Vial IVPUSH ONE (15:44)
[2020-06-22] MEDS ORDERED: diphenhydrAMINE 50 MG/ML SDV IVPUSH ONE ×2 (15:44→17:32)
[2020-06-22 16:23] LABS: ANION GAP 19.7 mEq/L (7-13); CHLORIDE,CL 103 mmol/L (98-107); SODIUM,NA 140 mmol/L (136-145)
[2020-06-22] MEDS ORDERED: GI Cocktail Oral Solution 30 ML PO ONE (16:31)
[2020-06-22] MEDS ORDERED: Ondansetron 4 MG/2 ML SDV IV ONE (16:31)
[2020-06-22] MEDS ORDERED: Dicyclomine 20 MG/2 ML SDV IM ONE (16:31)
[2020-06-22 16:39] VITALS: BP 152/79; PULSE 90
[2020-06-22] MEDS ORDERED: HYDROmorphone 0.5 MG/0.5 ML Syringe IVPUSH ONE (17:32)
[2020-06-22] MEDS ORDERED: Metoclopramide 10 MG/2 ML SDV IVPUSH ONE (17:32)
--- NOTE | 2020-06-22 17:41 | EDM.PDOC ---
Scribed by Sunitha Baer 06/22/20 1515 for Eugenio Steward MD ED HPI GENERAL MEDICAL PROBLEM - General Chief Complaint: Gastrointestinal Problem Stated Complaint: ACID REFLEX, NAUSEA Time Seen by Provider: 06/22/20 15:40 Source of Information: Reports: Patient, RN, RN Notes Reviewed History Limitations: Reports: No Limitations - History of Present Illness INITIAL COMMENTS - FREE TEXT/NARRATIVE: Patient presents to ED by POV presents with history of acid reflux. A few days ago he stopped his Protonix for unknown reason. He developed severe acid reflux about 2 days ago and it became severe that he began to vomit. He admits to mild diarrhea. Denies blood in his emesis or stool. Denies fever, chills, or any known COVID exposures. Pt also has a Hx of colitis. Onset: Gradual Duration: Constant Location: Reports: Abdomen Quality: Reports: Ache Severity: Severe Improves with: Reports: None Worsens with: Reports: None Associated Symptoms: Reports: No Other Symptoms - Related Data Allergies Allergy/AdvReac Type Severity Reaction Status Date / Time No Known Allergies Allergy Verified 06/22/20 15:29 Home Meds: Home Meds Pantoprazole [ProTONIX] 40 mg PO DAILY 05/30/17 [History] Venlafaxine [Effexor XR] 37.5 mg PO DAILY 05/30/17 [History] Past Medical History HEENT History: Reports: None Cardiovascular History: Reports: None Respiratory History: Reports: None Gastrointestinal History: Reports: GERD Other Gastrointestinal History: colitis Genitourinary History: Reports: None Musculoskeletal History: Reports: None Neurological History: Reports: None Psychiatric History: Reports: Anxiety Endocrine/Metabolic History: Reports: None Hematologic History: Reports: None Immunologic History: Reports: None Oncologic (Cancer) History: Reports: None Dermatologic History: Reports: None - Infectious Disease History Infectious Disease History: Reports: Chicken Pox - Past Surgical History Head Surgeries/Procedures: Reports: None GI Surgical History: Reports: EGD Social & Family History - Family History Family Medical History: No Pertinent Family History - Caffeine Use Caffeine Use: Reports: Coffee, Soda ED ROS GENERAL - Review of Systems Review Of Systems: Comprehensive ROS is negative, except as noted in HPI. ED EXAM, GI/ABD - Physical Exam Exam: See Below Exam Limited By: No Limitations General Appearance: Alert, WD/WN, No Apparent Distress, Anxious, Active Emesis Eyes: Bilateral: Normal Appearance (No scleral icterus) Ears: Normal External Exam, Normal Canal, Hearing Grossly Normal, Normal TMs Nose: Normal Inspection, Normal Mucosa, No Blood Throat/Mouth: Normal Inspection Head: Atraumatic, Normocephalic Neck: Normal Inspection, Supple, Non-Tender, Full Range of Motion Respiratory/Chest: No Respiratory Distress, Lungs Clear, Normal Breath Sounds, No Accessory Muscle Use, Chest Non-Tender Cardiovascular: Normal Peripheral Pulses, Regular Rate, Rhythm, No Edema, No Gallop, No JVD, No Murmur, No Rub GI/Abdominal Exam: Normal Bowel Sounds, Soft, Non-Tender, No Organomegaly, No Distention, No Abnormal Bruit, No Mass, Pelvis Stable, Other (patient is nontender in the area he says that is severe.) (Male) Exam: Deferred Rectal (Males) Exam: Deferred Back Exam: Normal Inspection, Full Range of Motion, NT Extremities: Normal Inspection, Normal Range of Motion, Non-Tender, Normal Capillary Refill, No Pedal Edema Neurological: Alert, Oriented, CN II-XII Intact, Normal Cognition, Normal Gait, Normal Reflexes, No Motor/Sensory Deficits Psychiatric: Normal Affect, Normal Mood Skin Exam: Warm, Dry, Intact, Normal Color, No Rash Course - Vital Signs Last Recorded V/S: Last Vital Signs Temp 96 F L 06/22/20 15:20 Pulse 90 06/22/20 15:20 Resp 20 06/22/20 15:20 BP 152/79 H 06/22/20 15:20 Pulse Ox 100 06/22/20 15:20 - Orders/Labs/Meds Orders: Active Orders 24 hr Category Date Time Status Peripheral IV Care [RC] . DIRECTED Care 06/22/20 15:44 Active Sodium Chloride 0.9% [Saline Flush] Med 06/22/20 15:43 Active 10 ml FLUSH ASDIRECTED PRN Peripheral IV Insertion Adult [OM.PC] Stat Oth 06/22/20 15:43 Ordered Medication Orders Sodium Chloride (Saline Flush) 10 ml FLUSH ASDIRECTED PRN PRN Reason: Keep Vein Open Last Admin: 06/22/20 15:58 Dose: 10 ml Documented by: CATHY Labs: Laboratory Tests 01/01/21 01/01/21 Range/Units 15:58 15:58 WBC 17.5 H (5.0-10.0) 10^3/uL RBC 5.75 (4.6-6.2) 10^6/uL Hgb 16.8 (14.0-18.0) g/dL Hct 47.0 (40.0-54.0) % MCV 81.7 (80-100) fL MCH 29.2 (27.0-34.0) pg MCHC 35.7 H (33.0-35.0) g/dL Plt Count 222 (150-450) 10^3/uL Neut % (Auto) 88.6 H (42.2-75.2) % Lymph % (Auto) 6.7 L (20.5-50.1) % [place] % (Auto) 4.3 (2-8) % Eos % (Auto) 0.2 L (1.0-3.0) % Baso % (Auto) 0.2 (0.0-1.0) % Sodium 140 (136-145) mmol/L Potassium 3.7 (3.5-5.1) mmol/L Chloride 103 (98-107) mmol/L Carbon Dioxide 21 (21-32) mmol/L Anion Gap 19.7 H (7-13) mEq/L BUN 12 (7-18) mg/dL Creatinine 1.37 H (0.70-1.30) mg/dL Est Cr Clr Drug Dosing TNP Estimated GFR (MDRD) > 60 BUN/Creatinine Ratio 8.8 (No establ ref range) Glucose 166 H (74-99) mg/dL Calcium 9.2 (8.5-10.1) mg/dL Total Bilirubin 0.9 (0.2-1.0) mg/dL AST 12 L (15-37) U/L ALT 28 (16-63) U/L Alkaline Phosphatase 85 (46-116) U/L C-Reactive Protein < 0.2 (0.0-0.9) mg/dL Total Protein 7.7 (6.4-8.2) g/dL Albumin 4.6 (3.4-5.0) g/dL Globulin 3.1 Albumin/Globulin Ratio 1.5 Amylase 36 (25-115) U/L Lipase 56 L (73-393) U/L Meds: Medications Generic Name Dose Route Start Last Admin Trade Name Lucaq PRN Reason Stop Dose Admin Sodium Chloride 10 ml 06/22/20 15:43 06/22/20 15:58 Saline Flush FLUSH 10 ml ASDIRECTED PRN Administration Keep Vein Open Discontinued Medications Generic Name Dose Route Start Last Admin Trade Name Lucaq PRN Reason Stop Dose Admin Al Hydroxide/Mg Hydroxide 30 ml 06/22/20 16:31 06/22/20 16:54 Gi Cocktail PO 06/22/20 16:32 30 ml ONETIME ONE Administration Dicyclomine HCl 20 mg 06/22/20 16:31 06/22/20 16:45 Bentyl IM 06/22/20 16:32 20 mg ONETIME ONE Administration Diphenhydramine HCl 25 mg 06/22/20 15:44 06/22/20 16:11 Benadryl IVPUSH 06/22/20 15:45 25 mg ONETIME ONE Administration Diphenhydramine HCl 25 mg 06/22/20 17:32 Benadryl IVPUSH 06/22/20 17:33 ONETIME ONE Hydromorphone HCl 0.5 mg 06/22/20 17:32 Dilaudid IVPUSH 06/22/20 17:33 ONETIME ONE Sodium Chloride 1,000 mls @ 999 mls/hr 06/22/20 15:43 06/22/20 16:08 Normal Saline IV 06/22/20 16:43 999 mls/hr .BOLUS ONE Administration Metoclopramide HCl 10 mg 06/22/20 17:32 Reglan IVPUSH 06/22/20 17:33 ONETIME ONE Ondansetron HCl 4 mg 06/22/20 15:43 06/22/20 16:08 Zofran IVPUSH 06/22/20 15:44 4 mg ONETIME ONE Administration Ondansetron HCl 4 mg 06/22/20 16:31 06/22/20 16:44 Zofran IV 06/22/20 16:32 4 mg ONETIME ONE Administration Pantoprazole Sodium 80 mg 06/22/20 15:44 06/22/20 16:14 Protonix Iv IVPUSH 06/22/20 15:45 80 mg .BOLUS ONE Administration - Re-Assessments/Exams Free Text/Narrative Re-Assessment/Exam: 06/22/20 17:36 Pt with chronic epigastric pain, acid reflux, and leukocytosis. He has been noncompliant with his medications. Plan to d/c pt home with Rx Carafate, and Promethazine and instructions to take his Protonix and f/u in clinic this week for recheck and further evaluation. Departure - Departure Time of Disposition: 18:00 Disposition: Home, Self-Care 01 Condition: Good Clinical Impression: Epigastric abdominal pain Acid reflux Qualifiers: Esophagitis presence: with esophagitis Esophagitis bleeding: without hemorrhage Qualified Code(s): K21.00 - Gastro-esophageal reflux disease with esophagitis, without bleeding - Discharge Information *PRESCRIPTION DRUG MONITORING PROGRAM REVIEWED*: Not Applicable *COPY OF PRESCRIPTION DRUG MONITORING REPORT IN PATIENT BRENDA: Not Applicable Instructions: Abdominal Pain, Adult, Esophagitis, Food Choices for Gastroesophageal Reflux Disease, Adult, [id number], Nausea and Vomiting, Adult, [id number] Forms: ED Department Discharge Additional Instructions: Rx: Carafate 1g Rx: Promethazine 25mg Take your Protonix (Pantoprazole) exactly as prescribed. Follow up at your primary clinic this coming week for recheck and further evaluation. Sepsis Event Note (ED) - Focused Exam Vital Signs: Vital Signs Temp Pulse Resp BP Pulse Ox 06/22/20 15:20 96 F L 90 20 152/79 H 100 - My Orders Last 24 Hours: My Active Orders 06/22/20 15:43 Sodium Chloride 0.9% [Saline Flush] 10 ml FLUSH ASDIRECTED PRN Peripheral IV Insertion Adult [OM.PC] Stat 06/22/20 15:44 Peripheral IV Care [RC] . DIRECTED - Assessment/Plan Last 24 Hours: My Active Orders 06/22/20 15:43 Sodium Chloride 0.9% [Saline Flush] 10 ml FLUSH ASDIRECTED PRN Peripheral IV Insertion Adult [OM.PC] Stat 06/22/20 15:44 Peripheral IV Care [RC] . DIRECTED I have read and agree with the documentation that has been completed regarding this visit. By signing this record, I attest that the documentation was completed in my physical presence and is an accurate record of the encounter.
[2020-06-22] MEDS ORDERED: Ondansetron 4 MG Tab.DIS ONE (18:06)
[2020-06-22] MEDS ORDERED: Promethazine 25 MG Tab ONE (18:06)
== END 2020-06-22 18:16 | disposition home or self-care (01) ==
LOC: DL.ED 15:03
DX: K21.00 Gastro-esophageal reflux disease with esophagitis, without bleeding (principal); F41.9 Anxiety disorder, unspecified; Z79.899 Other long term (current) drug therapy
CPT/HCPCS: 36415; 80053; 82150; 83690; 85025; 86140; 96372; 96374; 96375; 96376; 99283; 99284; A9270; C9113; J0500; J1170; J1200; J2405; J2765; J7030

== ENCOUNTER 2020-06-24 14:20 | Emergency (ER) | payer SELFPAY ==
[2020-06-24] MEDS ORDERED: Promethazine 25 MG/ML SDV IM ONE (14:34)
[2020-06-24 14:38] VITALS: BP 145/82; PULSE 80
[2020-06-24 15:06] LABS: ANION GAP 16.4 mEq/L (7-13); CHLORIDE,CL 106 mmol/L (98-107); SODIUM,NA 145 mmol/L (136-145)
[2020-06-24] MEDS ORDERED: GI Cocktail Oral Solution 30 ML PO ONE (15:10)
--- NOTE | 2020-06-24 15:19 | EDM.PDOC ---
Scribed by Sunitha Baer 06/24/20 1514 for Eugenio Steward MD ED HPI GENERAL MEDICAL PROBLEM - General Chief Complaint: Abdominal Pain Stated Complaint: INTESTINAL ULCERS Time Seen by Provider: 06/24/20 14:32 Source of Information: Reports: Patient, RN, RN Notes Reviewed History Limitations: Reports: No Limitations - History of Present Illness INITIAL COMMENTS - FREE TEXT/NARRATIVE: Patient presents to ED by POV presents with history of acid reflux. A few days ago he stopped his Protonix for unknown reason. He developed severe acid reflux about 4 days ago and it became severe that he began to vomit. He admits to mild diarrhea. Denies blood in his emesis or stool. Denies fever, chills, or any known COVID exposures. Patient also has a history of colitis. He was seen here on 06/22/20 and discharged with anti-emetic and Carafate but states that he has been missy ble to keep his medication down to nausea and vomiting. Onset: Gradual Duration: Getting Worse Location: Reports: Abdomen Quality: Reports: Ache Severity: Severe Improves with: Reports: None Worsens with: Reports: None Associated Symptoms: Reports: No Other Symptoms Epigastric Pain Score (Numeric/FACES): 9 - Related Data Allergies Allergy/AdvReac Type Severity Reaction Status Date / Time No Known Allergies Allergy Verified 06/24/20 14:39 Home Meds: Home Meds Pantoprazole [ProTONIX] 40 mg PO DAILY 05/30/17 [History] Venlafaxine [Effexor XR] 37.5 mg PO DAILY 05/30/17 [History] Past Medical History HEENT History: Reports: None Cardiovascular History: Reports: None Respiratory History: Reports: None Gastrointestinal History: Reports: GERD Other Gastrointestinal History: colitis Genitourinary History: Reports: None Musculoskeletal History: Reports: None Neurological History: Reports: None Psychiatric History: Reports: Anxiety Endocrine/Metabolic History: Reports: None Hematologic History: Reports: None Immunologic History: Reports: None Oncologic (Cancer) History: Reports: None Dermatologic History: Reports: None - Infectious Disease History Infectious Disease History: Reports: Chicken Pox - Past Surgical History Head Surgeries/Procedures: Reports: None GI Surgical History: Reports: EGD Social & Family History - Family History Family Medical History: No Pertinent Family History - Caffeine Use Caffeine Use: Reports: Coffee, Energy Drinks, Soda, Tea ED ROS GENERAL - Review of Systems Review Of Systems: Comprehensive ROS is negative, except as noted in HPI. ED EXAM, GI/ABD - Physical Exam Exam: See Below Exam Limited By: No Limitations General Appearance: Alert, WD/WN, No Apparent Distress Eyes: Bilateral: Normal Appearance (no scleral icterus) Ears: Normal External Exam, Normal Canal, Hearing Grossly Normal, Normal TMs Nose: Normal Inspection, Normal Mucosa, No Blood Throat/Mouth: Normal Inspection, Normal Lips, Normal Teeth, Normal Gums, Normal Oropharynx, Normal Voice, No Airway Compromise Head: Atraumatic, Normocephalic Neck: Normal Inspection, Supple, Non-Tender, Full Range of Motion Respiratory/Chest: No Respiratory Distress, Lungs Clear, Normal Breath Sounds, No Accessory Muscle Use, Chest Non-Tender Cardiovascular: Normal Peripheral Pulses, Regular Rate, Rhythm, No Edema, No Gallop, No JVD, No Murmur, No Rub GI/Abdominal Exam: Tender (epigastric) (Male) Exam: Deferred Rectal (Males) Exam: Deferred Back Exam: Normal Inspection, Full Range of Motion, NT Extremities: Normal Inspection, Normal Range of Motion, Non-Tender, Normal Capillary Refill, No Pedal Edema Neurological: Alert, Oriented, CN II-XII Intact, Normal Cognition, Normal Gait, Normal Reflexes, No Motor/Sensory Deficits Psychiatric: Normal Affect, Normal Mood Skin Exam: Warm, Dry, Intact, Normal Color, No Rash Course - Vital Signs Last Recorded V/S: Last Vital Signs Temp 99.2 F 06/24/20 14:37 Pulse 80 06/24/20 14:37 Resp 20 06/24/20 14:37 BP 145/82 H 06/24/20 14:37 Pulse Ox 100 06/24/20 14:37 - Orders/Labs/Meds Labs: Laboratory Tests 06/24/20 06/24/20 Range/Units 14:42 14:42 WBC 15.9 H (5.0-10.0) 10^3/uL RBC 5.10 (4.6-6.2) 10^6/uL Hgb 15.0 D (14.0-18.0) g/dL Hct 42.8 (40.0-54.0) % MCV 83.9 (80-100) fL MCH 29.4 (27.0-34.0) pg MCHC 35.0 (33.0-35.0) g/dL Plt Count 198 (150-450) 10^3/uL Neut % (Auto) 82.4 H (42.2-75.2) % Lymph % (Auto) 11.5 L (20.5-50.1) % Coal % (Auto) 5.9 (2-8) % Eos % (Auto) 0.1 L (1.0-3.0) % Baso % (Auto) 0.1 (0.0-1.0) % Sodium 145 (136-145) mmol/L Potassium 3.4 L (3.5-5.1) mmol/L Chloride 106 (98-107) mmol/L Carbon Dioxide 26 (21-32) mmol/L Anion Gap 16.4 H (7-13) mEq/L BUN 10 (7-18) mg/dL Creatinine 1.30 (0.70-1.30) mg/dL Est Cr Clr Drug Dosing 85.01 mL/min Estimated GFR (MDRD) > 60 BUN/Creatinine Ratio 7.7 (No establ ref range) Glucose 128 H (74-99) mg/dL Calcium 8.6 (8.5-10.1) mg/dL Total Bilirubin 0.6 (0.2-1.0) mg/dL AST 14 L (15-37) U/L ALT 29 (16-63) U/L Alkaline Phosphatase 71 (46-116) U/L Total Protein 6.8 (6.4-8.2) g/dL Albumin 4.2 (3.4-5.0) g/dL Globulin 2.6 Albumin/Globulin Ratio 1.6 Amylase 31 (25-115) U/L Lipase 52 L (73-393) U/L Meds: Medications Discontinued Medications Generic Name Dose Route Start Last Admin Trade Name Freq PRN Reason Stop Dose Admin Al Hydroxide/Mg Hydroxide 30 ml 06/24/20 15:10 06/24/20 15:14 Gi Cocktail PO 06/24/20 15:11 30 ml ONETIME ONE Administration Promethazine HCl 50 mg 06/24/20 14:34 06/24/20 14:56 Phenergan IM 06/24/20 14:35 50 mg ONETIME ONE Administration Departure - Departure Time of Disposition: 15:11 Disposition: Home, Self-Care 01 Condition: Good Clinical Impression: Acid reflux Qualifiers: Esophagitis presence: with esophagitis Esophagitis bleeding: without hemorrhage Qualified Code(s): K21.00 - Gastro-esophageal reflux disease with esophagitis, without bleeding Nausea & vomiting Qualifiers: Vomiting type: unspecified Vomiting Intractability: non-intractable Qualified Code(s): R11.2 - Nausea with vomiting, unspecified - Discharge Information *PRESCRIPTION DRUG MONITORING PROGRAM REVIEWED*: Not Applicable *COPY OF PRESCRIPTION DRUG MONITORING REPORT IN PATIENT BRENDA: Not Applicable Instructions: Nausea and Vomiting, Adult, Gastroesophageal Reflux Disease, Adult Forms: ED Department Discharge Additional Instructions: Rx: Zofran ODT 4mg Rx: Protonix 40mg Take the Carafate as prescribed. Take the Promethazine as prescribed, if needed for nausea. Elevate the head of your bed six inches. Follow up in clinic this week for recheck and referral of an upper endoscopy or GI consult. Sepsis Event Note (ED) - Focused Exam Vital Signs: Vital Signs Temp Pulse Resp BP Pulse Ox 06/24/20 14:37 99.2 F 80 20 145/82 H 100 I have read and agree with the documentation that has been completed regarding this visit. By signing this record, I attest that the documentation was completed in my physical presence and is an accurate record of the encounter.
== END 2020-06-24 15:22 | disposition home or self-care (01) ==
LOC: DL.ED 14:20
DX: K21.00 Gastro-esophageal reflux disease with esophagitis, without bleeding (principal); R11.2 Nausea with vomiting, unspecified; F41.9 Anxiety disorder, unspecified; Z79.899 Other long term (current) drug therapy
CPT/HCPCS: 36415; 80053; 82150; 83690; 85025; 96372; 99284; A9270; J2550; 99283

== ENCOUNTER 2020-10-05 14:05 | Emergency (ER) | payer SELFPAY ==
[2020-10-05] MEDS ORDERED: Ondansetron 4 MG Tab.DIS PO ONE (14:06)
[2020-10-05] MEDS ORDERED: Ondansetron 8 MG in Sodium Chloride 0.9% 50 ML IV ONE (14:39)
[2020-10-05] MEDS ORDERED: Pantoprazole 80 MG in Sodium Chloride 0.9% 100 ML IV ONE (14:40)
[2020-10-05] MEDS ORDERED: Octreotide 100 MCG in Sodium Chloride 0.9% 99 ML IV SCH (14:45)
[2020-10-05 15:05] VITALS: BP 151/85; PULSE 92
[2020-10-05] MEDS ORDERED: HYDROmorphone 0.5 MG/0.5 ML Syringe IVPUSH ONE (15:15)
[2020-10-05] MEDS ORDERED: Sodium Chloride 0.9% 1,000 ML IV ONE ×2 (15:16→16:34)
[2020-10-05] MEDS ORDERED: Potassium Chloride 10 MEQ in Premix Bag 1 BAG IV ONE (16:34)
--- NOTE | 2020-10-05 16:53 | EDM.PDOC ---
ED HPI GENERAL MEDICAL PROBLEM - General Chief Complaint: Gastrointestinal Problem Stated Complaint: CANT KEEP ANYTHING DOWN SINCE THURSDAY NIGHT Time Seen by Provider: 10/05/20 15:10 Source of Information: Reports: Patient, RN History Limitations: Reports: No Limitations - History of Present Illness INITIAL COMMENTS - FREE TEXT/NARRATIVE: ED with c/o pain to upper abdomen. Some milder lower, VOmiting since becki. Hx gastric ulcers and reflux. Ran out of zofran. Cant remember if took protonix last few days. Admits heavy caffeine use , some spicy food Thursday and consumption of ETOH. Nurse noted 300ml emesis light pink tinged liquid on on arrival. Patient reported some coffee ground emesis previously. - Related Data Allergies Allergy/AdvReac Type Severity Reaction Status Date / Time No Known Allergies Allergy Verified 10/06/20 03:30 Home Meds: Home Meds Pantoprazole [ProTONIX] 40 mg PO DAILY 05/30/17 [History] Venlafaxine [Effexor XR] 37.5 mg PO DAILY 05/30/17 [History] Past Medical History HEENT History: Reports: None Cardiovascular History: Reports: None Respiratory History: Reports: None Gastrointestinal History: Reports: GERD, Other (See Below) Other Gastrointestinal History: colitis. stomach or esophageal ulcers Genitourinary History: Reports: None Musculoskeletal History: Reports: None Neurological History: Reports: None Psychiatric History: Reports: Anxiety Endocrine/Metabolic History: Reports: None Hematologic History: Reports: None Immunologic History: Reports: None Oncologic (Cancer) History: Reports: None Dermatologic History: Reports: None - Infectious Disease History Infectious Disease History: Reports: Chicken Pox - Past Surgical History Head Surgeries/Procedures: Reports: None GI Surgical History: Reports: EGD Social & Family History - Family History Family Medical History: No Pertinent Family History - Tobacco Use Tobacco Use Status *Q: Never Tobacco User - Caffeine Use Caffeine Use: Reports: None - Recreational Drug Use Recreational Drug Use: Yes Recreational Drug Type: Reports: Marijuana/Hashish ED ROS GENERAL - Review of Systems Review Of Systems: See Below Constitutional: Reports: Decreased Appetite. Denies: Fever, Chills HEENT: Reports: No Symptoms Respiratory: Reports: No Symptoms Cardiovascular: Reports: No Symptoms GI/Abdominal: Reports: Abdominal Pain, Decreased Appetite, Nausea, Vomiting. Denies: Constipation, Difficulty Swallowing : Reports: No Symptoms Musculoskeletal: Reports: No Symptoms Skin: Reports: No Symptoms Neurological: Reports: No Symptoms ED EXAM, GI/ABD - Physical Exam Exam: See Below Exam Limited By: No Limitations General Appearance: Alert, No Apparent Distress Ears: Normal External Exam Nose: Normal Inspection Throat/Mouth: Normal Inspection Head: Atraumatic, Normocephalic Neck: Normal Inspection, Full Range of Motion Respiratory/Chest: No Respiratory Distress, Lungs Clear, Normal Breath Sounds Cardiovascular: Normal Peripheral Pulses, Regular Rate, Rhythm GI/Abdominal Exam: Normal Bowel Sounds, Soft, Tender (general greater epigastric). No: Distended Back Exam: Normal Inspection Neurological: Alert, Oriented, Normal Cognition Psychiatric: Normal Affect, Normal Mood Skin Exam: Warm, Dry, Intact, Normal Color Course - Vital Signs Last Recorded V/S: Last Vital Signs Temp 97.6 F 10/05/20 15:00 Pulse 92 10/05/20 15:00 Resp 20 10/05/20 15:00 BP 151/85 H 10/05/20 15:00 Pulse Ox 97 10/05/20 15:00 - Orders/Labs/Meds Labs: Laboratory Tests 10/05/20 10/05/20 Range/Units 14:47 14:47 WBC 20.9 H (5.0-10.0) 10^3/uL RBC 5.83 (4.6-6.2) 10^6/uL Hgb 16.7 D (14.0-18.0) g/dL Hct 48.1 (40.0-54.0) % MCV 82.5 (80-100) fL MCH 28.6 (27.0-34.0) pg MCHC 34.7 (33.0-35.0) g/dL Plt Count 263 (150-450) 10^3/uL Neut % (Auto) 85.0 H (42.2-75.2) % Lymph % (Auto) 9.1 L (20.5-50.1) % Wells % (Auto) 5.7 (2-8) % Eos % (Auto) 0.0 L (1.0-3.0) % Baso % (Auto) 0.2 (0.0-1.0) % Sodium 140 (136-145) mmol/L Potassium 3.0 L (3.5-5.1) mmol/L Chloride 100 (98-107) mmol/L Carbon Dioxide 24 (21-32) mmol/L Anion Gap 19.0 H (7-13) mEq/L BUN 18 (7-18) mg/dL Creatinine 1.44 H (0.70-1.30) mg/dL Est Cr Clr Drug Dosing 76.04 mL/min Estimated GFR (MDRD) 57 BUN/Creatinine Ratio 12.5 (No establ ref range) Glucose 168 H (70-99) mg/dL Calcium 9.1 (8.5-10.1) mg/dL Total Bilirubin 0.9 (0.2-1.0) mg/dL AST 9 L (15-37) U/L ALT 26 (16-63) U/L Alkaline Phosphatase 82 (46-116) U/L Total Protein 7.8 (6.4-8.2) g/dL Albumin 4.5 (3.4-5.0) g/dL Globulin 3.3 Albumin/Globulin Ratio 1.4 Amylase 26 (25-115) U/L Lipase 47 L (73-393) U/L Meds: Medications Discontinued Medications Generic Name Dose Route Start Last Admin Trade Name Freq PRN Reason Stop Dose Admin Hydromorphone HCl 0.5 mg 10/05/20 15:15 10/05/20 15:25 Hydromorphone 0.5 Mg/0.5 Ml Syringe IVPUSH 10/05/20 15:16 0.5 mg ONETIME ONE Administration Ondansetron HCl 8 mg/ Sodium 54 mls @ 200 mls/hr 10/05/20 14:39 10/05/20 14:49 Chloride IV 10/05/20 14:55 200 mls/hr ONETIME ONE Administration Octreotide Acetate 100 mcg/ 100 mls @ 50 mls/hr 10/05/20 14:45 10/05/20 16:36 Sodium Chloride IV 50 mls/hr Q10H SONIA Administration Pantoprazole Sodium 80 mg/ 100 mls @ 200 mls/hr 10/05/20 14:40 10/05/20 15:29 Sodium Chloride IV 10/05/20 15:09 200 mls/hr .BOLUS ONE Administration Sodium Chloride 1,000 mls @ 999 mls/hr 10/05/20 15:16 10/05/20 18:14 Normal Saline IV 10/05/20 16:16 Infused .BOLUS ONE Infusion Sodium Chloride 1,000 mls @ 999 mls/hr 10/05/20 16:34 10/05/20 17:57 Normal Saline IV 10/05/20 17:34 999 mls/hr .BOLUS ONE Infusion Potassium Chloride 10 meq/ 100 mls @ 100 mls/hr 10/05/20 16:34 10/05/20 17:56 Premix IV 10/05/20 17:33 Infused ONETIME ONE Infusion Ondansetron HCl Confirm 10/05/20 18:38 Ondansetron 4 Mg Tab.Dis Administered 10/05/20 18:39 Dose 12 mg .ROUTE .[facility] ONE - Re-Assessments/Exams Free Text/Narrative Re-Assessment/Exam: 10/05/20 18:42 symptoms improved. No further emesis, pain and nausea resolving. Departure - Departure Time of Disposition: 18:16 Disposition: Home, Self-Care 01 Condition: Good Clinical Impression: Reflux gastritis, Vomiting - Discharge Information *PRESCRIPTION DRUG MONITORING PROGRAM REVIEWED*: No *COPY OF PRESCRIPTION DRUG MONITORING REPORT IN PATIENT BRENDA: No Instructions: Gastritis, Adult, [id number], Hypokalemia, Dehydration, Adult, [id number] Forms: ED Department Discharge Additional Instructions: protonix 40mg daily for one week then 20mg daily clinic follow up next week urgent follow up if worsening pain, and bloody vomit bland diet continue sulcrafate zofran ODT 4mg every 4 hours as needed Sepsis Event Note (ED) - Evaluation Sepsis Screening Result: No Definite Risk
[2020-10-05] MEDS ORDERED: Ondansetron 4 MG Tab.DIS ONE (18:38)
== END 2020-10-05 18:54 | disposition home or self-care (01) ==
LOC: DL.ED 14:05
DX: K29.70 Gastritis, unspecified, without bleeding (principal); K21.9 Gastro-esophageal reflux disease without esophagitis; Z79.899 Other long term (current) drug therapy
CPT/HCPCS: 36415; 80053; 82150; 83690; 85025; 96365; 96366; 96367; 96368; 96375; 99284; 99284-25; A9270-GY; C9113; J1170; J2354-GY; J2405; J3480; J7030

== ENCOUNTER 2020-10-06 01:55 | Emergency (ER) | payer SELFPAY ==
[2020-10-06] MEDS ORDERED: Metoclopramide 10 MG/2 ML SDV IVPUSH ONE (02:09)
[2020-10-06] MEDS ORDERED: Sodium Chloride 0.9% 1,000 ML IV ONE ×2 (02:09→03:17)
--- NOTE | 2020-10-06 02:37 | EDM.PDOC ---
"ED HPI GENERAL MEDICAL PROBLEM - General Chief Complaint: Gastrointestinal Problem Stated Complaint: VOMMITING Time Seen by Provider: 10/06/20 02:05 Source of Information: Reports: Patient History Limitations: Reports: No Limitations - History of Present Illness INITIAL COMMENTS - FREE TEXT/NARRATIVE: This 30 yo male patient reports to the ED with continued nausea and vomiting. The patient was seen here last night with similar symptoms, was treated and discharged. The patient reports his symptoms were better at discharge, but had gotten worse again. The patient reports he took all of the nausea medication given to him on the last visit, but has still vomited 6 times. Onset: Today Duration: Constant Location: Reports: Abdomen Quality: Reports: Ache Severity: Moderate Improves with: Reports: None Worsens with: Reports: None Context: Reports: Other Associated Symptoms: Reports: No Other Symptoms Abdomen Pain Score (Numeric/FACES): 3 - Related Data Allergies Allergy/AdvReac Type Severity Reaction Status Date / Time No Known Allergies Allergy Verified 10/06/20 03:30 Home Meds: Home Meds Pantoprazole [ProTONIX] 40 mg PO DAILY 05/30/17 [History] Venlafaxine [Effexor XR] 37.5 mg PO DAILY 05/30/17 [History] Past Medical History HEENT History: Reports: None Cardiovascular History: Reports: None Respiratory History: Reports: None Gastrointestinal History: Reports: GERD, Other (See Below) Other Gastrointestinal History: colitis. stomach or esophageal ulcers Genitourinary History: Reports: None Musculoskeletal History: Reports: None Neurological History: Reports: None Psychiatric History: Reports: Anxiety Endocrine/Metabolic History: Reports: None Hematologic History: Reports: None Immunologic History: Reports: None Oncologic (Cancer) History: Reports: None Dermatologic History: Reports: None - Infectious Disease History Infectious Disease History: Reports: Chicken Pox - Past Surgical History Head Surgeries/Procedures: Reports: None GI Surgical History: Reports: EGD Social & Family History - Family History Family Medical History: No Pertinent Family History - Tobacco Use Tobacco Use Status *Q: Unknown Ever Used Tobacco Second Hand Smoke Exposure: No - Caffeine Use Caffeine Use: Reports: Energy Drinks - Recreational Drug Use Recreational Drug Use: Yes Drug Use in Last 12 Months: Yes Recreational Drug Type: Reports: Marijuana/Hashish Recreational Drug Use Frequency: Daily ED ROS GENERAL - Review of Systems Review Of Systems: Comprehensive ROS is negative, except as noted in HPI. ED EXAM, GI/ABD - Physical Exam Exam: See Below Exam Limited By: No Limitations General Appearance: Alert, WD/WN, Moderate Distress Eyes: Bilateral: Normal Appearance, EOMI Ears: Normal External Exam, Normal Canal, Hearing Grossly Normal, Normal TMs Nose: Normal Inspection, Normal Mucosa, No Blood Throat/Mouth: Normal Inspection, Normal Lips, Normal Teeth, Normal Gums, Normal Oropharynx, Normal Voice, No Airway Compromise Head: Atraumatic, Normocephalic Neck: Normal Inspection, Supple, Non-Tender, Full Range of Motion Respiratory/Chest: No Respiratory Distress, Lungs Clear, Normal Breath Sounds, No Accessory Muscle Use, Chest Non-Tender Cardiovascular: Normal Peripheral Pulses, Regular Rate, Rhythm, No Edema, No Gallop, No JVD, No Murmur, No Rub GI/Abdominal Exam: Normal Bowel Sounds, No Organomegaly, No Distention, No Abnormal Bruit, No Mass, Pelvis Stable, Tender (diffuse) (Male) Exam: Deferred Rectal (Males) Exam: Deferred Back Exam: Normal Inspection, Full Range of Motion, NT Extremities: Normal Inspection, Normal Range of Motion, Non-Tender, Normal Capillary Refill, No Pedal Edema Neurological: Alert, Oriented, CN II-XII Intact, Normal Cognition, Normal Gait, Normal Reflexes, No Motor/Sensory Deficits Psychiatric: Anxious Skin Exam: Warm, Dry, Intact, Normal Color, No Rash Lymphatic: No Adenopathy Course - Vital Signs Last Recorded V/S: Last Vital Signs Temp 36.3 C 10/06/20 01:58 Pulse 88 10/06/20 01:58 Resp 19 10/06/20 01:58 BP 124/74 10/06/20 01:58 Pulse Ox 97 10/06/20 01:58 - Orders/Labs/Meds Orders: Active Orders 24 hr Category Date Time Status CULTURE BLOOD [BC] Stat Lab 10/06/20 02:10 Results Labs: Laboratory Tests 10/06/20 10/06/20 10/06/20 Range/Units 02:10 02:10 02:10 WBC 15.6 H (5.0-10.0) 10^3/uL RBC 5.09 (4.6-6.2) 10^6/uL Hgb 14.5 D (14.0-18.0) g/dL Hct 42.8 (40.0-54.0) % MCV 84.1 (80-100) fL MCH 28.5 (27.0-34.0) pg MCHC 33.9 (33.0-35.0) g/dL Plt Count 205 (150-450) 10^3/uL Neut % (Auto) 77.9 H (42.2-75.2) % Lymph % (Auto) 12.8 L (20.5-50.1) % Catron % (Auto) 8.8 H (2-8) % Eos % (Auto) 0.3 L (1.0-3.0) % Baso % (Auto) 0.2 (0.0-1.0) % Sodium 142 (136-145) mmol/L Potassium 3.6 (3.5-5.1) mmol/L Chloride 106 (98-107) mmol/L Carbon Dioxide 24 (21-32) mmol/L Anion Gap 15.6 H (7-13) mEq/L BUN 16 (7-18) mg/dL Creatinine 1.29 (0.70-1.30) mg/dL Est Cr Clr Drug Dosing 84.88 mL/min Estimated GFR (MDRD) > 60 BUN/Creatinine Ratio 12.4 (No establ ref range) Glucose 134 H (70-99) mg/dL Lactic Acid 0.9 (0.4-2.0) mmol/L Calcium 8.4 L (8.5-10.1) mg/dL Total Bilirubin 0.9 (0.2-1.0) mg/dL AST 14 L (15-37) U/L ALT 21 (16-63) U/L Alkaline Phosphatase 69 (46-116) U/L Total Protein 6.8 (6.4-8.2) g/dL Albumin 3.8 (3.4-5.0) g/dL Globulin 3.0 Albumin/Globulin Ratio 1.3 Amylase (25-115) U/L Lipase (73-393) U/L Urine Color (YELLOW) Urine Appearance (CLEAR) Urine pH (5.0-9.0) Ur Specific [place] (1.005-1.030) Urine Protein (NEGATIVE) Urine Glucose (UA) (NEGATIVE) Urine Ketones (NEGATIVE) Urine Occult Blood (NEGATIVE) Urine Nitrite (NEGATIVE) Urine Bilirubin (NEGATIVE) Urine Urobilinogen (0.2-1.0) mg/dL Ur Leukocyte Esterase (NEGATIVE) Urine RBC /HPF Urine WBC (0-5/HPF) /HPF Ur Epithelial Cells (NOT SEEN) /HPF Urine Bacteria (0-FEW/HPF) /HPF Urine Mucus (NOT SEEN) /LPF Urine Opiates Screen (NEGATIVE) Ur Oxycodone Screen (NEGATIVE) Urine Methadone Screen (NEGATIVE) Ur Barbiturates Screen (NEGATIVE) U Tricyclic Antidepress (NEGATIVE) Ur Phencyclidine Scrn (NEGATIVE) Ur Amphetamine Screen (NEGATIVE) U Methamphetamines Scrn (NEGATIVE) Urine MDMA Screen (NEGATIVE) U Benzodiazepines Scrn (NEGATIVE) Urine Cocaine Screen (NEGATIVE) U Marijuana (THC) Screen (NEGATIVE) SARS CoV-2 RNA Rapid RUTH (NEGATIVE) 10/06/20 10/06/20 10/06/20 Range/Units 02:10 02:40 03:30 WBC (5.0-10.0) 10^3/uL RBC (4.6-6.2) 10^6/uL Hgb (14.0-18.0) g/dL Hct (40.0-54.0) % MCV (80-100) fL MCH (27.0-34.0) pg MCHC (33.0-35.0) g/dL Plt Count (150-450) 10^3/uL Neut % (Auto) (42.2-75.2) % Lymph % (Auto) (20.5-50.1) % Catron % (Auto) (2-8) % Eos % (Auto) (1.0-3.0) % Baso % (Auto) (0.0-1.0) % Sodium (136-145) mmol/L Potassium (3.5-5.1) mmol/L Chloride (98-107) mmol/L Carbon Dioxide (21-32) mmol/L Anion Gap (7-13) mEq/L BUN (7-18) mg/dL Creatinine (0.70-1.30) mg/dL Est Cr Clr Drug Dosing mL/min Estimated GFR (MDRD) BUN/Creatinine Ratio (No establ ref range) Glucose (70-99) mg/dL Lactic Acid (0.4-2.0) mmol/L Calcium (8.5-10.1) mg/dL Total Bilirubin (0.2-1.0) mg/dL AST (15-37) U/L ALT (16-63) U/L Alkaline Phosphatase (46-116) U/L Total Protein (6.4-8.2) g/dL Albumin (3.4-5.0) g/dL Globulin Albumin/Globulin Ratio Amylase 43 (25-115) U/L Lipase 131 (73-393) U/L Urine Color Yellow (YELLOW) Urine Appearance Slightly cloudy (CLEAR) Urine pH 6.5 (5.0-9.0) Ur Specific [place] 1.025 (1.005-1.030) Urine Protein 30 H (NEGATIVE) Urine Glucose (UA) Negative (NEGATIVE) Urine Ketones Negative (NEGATIVE) Urine Occult Blood Negative (NEGATIVE) Urine Nitrite Negative (NEGATIVE) Urine Bilirubin Negative (NEGATIVE) Urine Urobilinogen 1.0 (0.2-1.0) mg/dL Ur Leukocyte Esterase Negative (NEGATIVE) Urine RBC Not seen /HPF Urine WBC 0-5 (0-5/HPF) /HPF Ur Epithelial Cells Occasional (NOT SEEN) /HPF Urine Bacteria Moderate H (0-FEW/HPF) /HPF Urine Mucus Moderate H (NOT SEEN) /LPF Urine Opiates Screen (NEGATIVE) Ur Oxycodone Screen (NEGATIVE) Urine Methadone Screen (NEGATIVE) Ur Barbiturates Screen (NEGATIVE) U Tricyclic Antidepress (NEGATIVE) Ur Phencyclidine Scrn (NEGATIVE) Ur Amphetamine Screen (NEGATIVE) U Methamphetamines Scrn (NEGATIVE) Urine MDMA Screen (NEGATIVE) U Benzodiazepines Scrn (NEGATIVE) Urine Cocaine Screen (NEGATIVE) U Marijuana (THC) Screen (NEGATIVE) SARS CoV-2 RNA Rapid RUTH Negative (NEGATIVE) 10/06/20 Range/Units 03:30 WBC (5.0-10.0) 10^3/uL RBC (4.6-6.2) 10^6/uL Hgb (14.0-18.0) g/dL Hct (40.0-54.0) % MCV (80-100) fL MCH (27.0-34.0) pg MCHC (33.0-35.0) g/dL Plt Count (150-450) 10^3/uL Neut % (Auto) (42.2-75.2) % Lymph % (Auto) (20.5-50.1) % Catron % (Auto) (2-8) % Eos % (Auto) (1.0-3.0) % Baso % (Auto) (0.0-1.0) % Sodium (136-145) mmol/L Potassium (3.5-5.1) mmol/L Chloride (98-107) mmol/L Carbon Dioxide (21-32) mmol/L Anion Gap (7-13) mEq/L BUN (7-18) mg/dL Creatinine (0.70-1.30) mg/dL Est Cr Clr Drug Dosing mL/min Estimated GFR (MDRD) BUN/Creatinine Ratio (No establ ref range) Glucose (70-99) mg/dL Lactic Acid (0.4-2.0) mmol/L Calcium (8.5-10.1) mg/dL Total Bilirubin (0.2-1.0) mg/dL AST (15-37) U/L ALT (16-63) U/L Alkaline Phosphatase (46-116) U/L Total Protein (6.4-8.2) g/dL Albumin (3.4-5.0) g/dL Globulin Albumin/Globulin Ratio Amylase (25-115) U/L Lipase (73-393) U/L Urine Color (YELLOW) Urine Appearance (CLEAR) Urine pH (5.0-9.0) Ur Specific [place] (1.005-1.030) Urine Protein (NEGATIVE) Urine Glucose (UA) (NEGATIVE) Urine Ketones (NEGATIVE) Urine Occult Blood (NEGATIVE) Urine Nitrite (NEGATIVE) Urine Bilirubin (NEGATIVE) Urine Urobilinogen (0.2-1.0) mg/dL Ur Leukocyte Esterase (NEGATIVE) Urine RBC /HPF Urine WBC (0-5/HPF) /HPF Ur Epithelial Cells (NOT SEEN) /HPF Urine Bacteria (0-FEW/HPF) /HPF Urine Mucus (NOT SEEN) /LPF Urine Opiates Screen Positive H (NEGATIVE) Ur Oxycodone Screen Negative (NEGATIVE) Urine Methadone Screen Negative (NEGATIVE) Ur Barbiturates Screen Negative (NEGATIVE) U Tricyclic Antidepress Negative (NEGATIVE) Ur Phencyclidine Scrn Negative (NEGATIVE) Ur Amphetamine Screen Negative (NEGATIVE) U Methamphetamines Scrn Negative (NEGATIVE) Urine MDMA Screen Negative (NEGATIVE) U Benzodiazepines Scrn Negative (NEGATIVE) Urine Cocaine Screen Negative (NEGATIVE) U Marijuana (THC) Screen Positive H (NEGATIVE) SARS CoV-2 RNA Rapid RUTH (NEGATIVE) Meds: Medications Discontinued Medications Generic Name Dose Route Start Last Admin Trade Name Elo PRN Reason Stop Dose Admin Sodium Chloride 1,000 mls @ 999 mls/hr 10/06/20 02:09 10/06/20 02:11 Normal Saline IV 10/06/20 03:09 999 mls/hr .BOLUS ONE Administration Sodium Chloride 1,000 mls @ 999 mls/hr 10/06/20 03:17 10/06/20 03:20 Normal Saline IV 10/06/20 04:17 999 mls/hr .BOLUS ONE Administration Iopamidol 100 ml 10/06/20 03:12 10/06/20 03:29 Iopamidol 612 Mg/Ml 100 Ml Bottle IVPUSH 10/06/20 03:13 100 ml ONETIME ONE Administration Metoclopramide HCl 10 mg 10/06/20 02:09 10/06/20 02:12 Metoclopramide 10 Mg/2 Ml Sdv IVPUSH 10/06/20 02:10 10 mg ONETIME ONE Administration Promethazine HCl 50 mg 10/06/20 04:36 Promethazine 25 Mg/Ml Sdv IM 10/06/20 04:37 ONETIME ONE - Radiology Interpretation Free Text/Narrative:: [facility] Final Radiology Report Call: [phone] assistance Online chat: [email or web address] Name: CIARAN DANG Age: 30Years M Date: 10/06/2020 SSN: -- : [id number] Study: CT ABDOMEN PELVIS W CONT Requesting Physician: Fareed Brown Images: [id number] Addl Studies: Provided Clinical History: abdominal pain Contrast: With Contrast Medium: [id number] Contrast Amount: 100 mL Contrast Method: Intravenous (IV) Page 1 of 2 PROCEDURE INFORMATION: Exam: CT Abdomen And Pelvis With Contrast Exam date and time: 10/06/2020 3:44 AM Age: 30 years old Clinical indication: Other: Wbc 16.9; Additional info: Abdominal pain TECHNIQUE: Imaging protocol: Computed tomography of the abdomen and pelvis with contrast. Radiation optimization: All CT scans at this facility use at least one of these dose optimization techniques: automated exposure control; mA and/or kV adjustment per patient size (includes targeted exams where dose is matched to clinical indication); or iterative reconstruction. Contrast material: [id number]; Contrast volume: 100 ml; Contrast route: INTRAVENOUS (IV); COMPARISON: CT Abdomen Pelvis w Cont 02/22/2017 2:55 PM FINDINGS: Liver: Normal. No mass. Gallbladder and bile ducts: Normal. No calcified stones. No ductal dilation. Pancreas: Normal. No ductal dilation. Spleen: Normal. No splenomegaly. Adrenal glands: Normal. No mass. Kidneys and ureters: Normal. No hydronephrosis. Stomach and bowel: Mild colonic wall thickening. Appendix: No evidence of appendicitis. Intraperitoneal space: Unremarkable. No free air. No significant fluid collection. Vasculature: Unremarkable. No abdominal aortic aneurysm. Lymph nodes: Unremarkable. No enlarged lymph nodes. CIARAN DANG | Final Radiology Report CONFIDENTIALITY STATEMENT This report is intended only for use by the referring physician, and only in accordance with law. If you received this in error, call [phone]. Page 2 of 2 Urinary bladder: Unremarkable as visualized. Reproductive: Unremarkable as visualized. Bones/joints: Unremarkable. No acute fracture. Soft tissues: Unremarkable. IMPRESSION: Mild colonic wall thickening consistent with mild changes of pancolitis. Thank you for allowing us to participate in the care of your patient. Dictated and Authenticated by: Jyoti Sheffield MD 10/06/2020 4:34 AM Central Time ([place] & [place]) Departure - Departure Time of Disposition: 04:41 Disposition: Home, Self-Care 01 Condition: Fair Clinical Impression: Gastroenteritis - Discharge Information *PRESCRIPTION DRUG MONITORING PROGRAM REVIEWED*: Not Applicable *COPY OF PRESCRIPTION DRUG MONITORING REPORT IN PATIENT BRENDA: Not Applicable Forms: ED Department Discharge Care Plan Goals: The patient was advised of the examination, lab and CT results during the visit. The patient was given IV fluids, IV Reglan, IV Zofran and IM Phenergan while in the ED. The patient was encouraged to have small sips of water over the next 24 hours. The patient may take his home medications as prescribed. If the patient has any additional symptoms or concerns, the patient should either return to the emergency department or visit his primary care facility. Sepsis Event Note (ED) - Evaluation Sepsis Screening Result: No Definite Risk - Focused Exam Vital Signs: Vital Signs Temp Pulse Resp BP Pulse Ox 10/06/20 01:58 36.3 C 88 19 124/74 97 - My Orders Last 24 Hours: My Active Orders 10/06/20 02:10 CULTURE BLOOD [BC] Stat - Assessment/Plan Last 24 Hours: My Active Orders 10/06/20 02:10 CULTURE BLOOD [BC] Stat"
[2020-10-06 02:38] LABS: ANION GAP 15.6 mEq/L (7-13); CHLORIDE,CL 106 mmol/L (98-107); SODIUM,NA 142 mmol/L (136-145)
[2020-10-06] MEDS ORDERED: Iopamidol 612 MG/ML 100 ML Bottle IVPUSH ONE (03:12)
--- NOTE | 2020-10-06 04:34 | CT ---
PROCEDURE INFORMATION: Exam: CT Abdomen And Pelvis With Contrast Exam date and time: 10/06/2020 3:44 AM Age: 30 years old Clinical indication: Other: Wbc 16.9; Additional info: Abdominal pain TECHNIQUE: Imaging protocol: Computed tomography of the abdomen and pelvis with contrast. Radiation optimization: All CT scans at this facility use at least one of these dose optimization techniques: automated exposure control; mA and/or kV adjustment per patient size (includes targeted exams where dose is matched to clinical indication); or iterative reconstruction. Contrast material: [id number]; Contrast volume: 100 ml; Contrast route: INTRAVENOUS (IV); COMPARISON: CT Abdomen Pelvis w Cont 02/22/2017 2:55 PM FINDINGS: Liver: Normal. No mass. Gallbladder and bile ducts: Normal. No calcified stones. No ductal dilation. Pancreas: Normal. No ductal dilation. Spleen: Normal. No splenomegaly. Adrenal glands: Normal. No mass. Kidneys and ureters: Normal. No hydronephrosis. Stomach and bowel: Mild colonic wall thickening. Appendix: No evidence of appendicitis. Intraperitoneal space: Unremarkable. No free air. No significant fluid collection. Vasculature: Unremarkable. No abdominal aortic aneurysm. Lymph nodes: Unremarkable. No enlarged lymph nodes. Urinary bladder: Unremarkable as visualized. Reproductive: Unremarkable as visualized. Bones/joints: Unremarkable. No acute fracture. Soft tissues: Unremarkable. IMPRESSION: Mild colonic wall thickening consistent with mild changes of pancolitis.
[2020-10-06] MEDS ORDERED: Promethazine 25 MG/ML SDV IM ONE (04:36)
[2020-10-06] MEDS ORDERED: Ondansetron 4 MG/2 ML SDV IVPUSH ONE (04:41)
[2020-10-06 04:50] VITALS: BP 134/75; PULSE 71
== END 2020-10-06 04:54 | disposition home or self-care (01) ==
LOC: DL.ED 01:55
DX: K52.9 Noninfective gastroenteritis and colitis, unspecified (principal); K21.9 Gastro-esophageal reflux disease without esophagitis; Z79.899 Other long term (current) drug therapy; Z20.822 Contact with and (suspected) exposure to COVID-19
CPT/HCPCS: 36415; 74177; 80053; 80305-QW; 81001; 82150; 83605; 83690; 85025; 87040; 87804; 96372; 96374; 96375; 99284; 99284-25; J2405; J2550; J2765; J7030; Q9967; U0002

== ENCOUNTER 2023-12-13 15:53 | Emergency (ER) | payer SELFPAY ==
[2023-12-13] MEDS: Lidocaine 1% 30 ML SDV INJECT ONE (16:12)
[2023-12-13] MEDS: Diphtheria,Pertussis(Acell),Tetanus Vaccine 0.5 ML Syringe IM ONE (17:21)
[2023-12-13] MEDS: Cephalexin 500 MG Cap PO ONE (17:22)
[2023-12-13] MEDS: Bacitracin Oint 1 GM U/D Packet ONE (17:23)
[2023-12-13] MEDS: Bacitracin Oint 1 GM U/D Packet TOP ONE (17:23)
[2023-12-13 17:29] VITALS: PULSE 71
[2023-12-13] MEDS: Take Home: Cephalexin 500 MG Cap, 6 Cap Pack PO ONE (17:30)
[2023-12-13] MEDS: Take Home: Acetaminophen/HYDROcodone 325-5 MG, 5 Tab Pack PO ONE (17:30)
== END 2023-12-13 17:34 | disposition home or self-care (01) ==
LOC: DL.ED 15:53
DX: S68.012A Complete traumatic metacarpophalangeal amputation of left thumb, initial encounter (principal); Z23 Encounter for immunization; Z79.899 Other long term (current) drug therapy; W26.0XXA Contact with knife, initial encounter; Y93.89 Activity, other specified; Y99.0 Civilian activity done for income or pay
CPT/HCPCS: 11730; 90471; 90715; 99283; A9270; J3490